=== PATIENT | male | born 1995 | race Caucasian/White ===

== ENCOUNTER 2023-03-19 10:57 | Outpatient (REF) | payer OTHER, SELFPAY ==
--- NOTE | ~2023-03-19 | US_ITS ---
EXAMINATION: US ABDOMEN COMPLETE CLINICAL INFORMATION: Elevated LFTs. COMPARISON: None available. TECHNIQUE: Real-time imaging of the abdominal viscera. FINDINGS: PANCREAS: Obscured by bowel gas. ABDOMINAL AORTA: Visualized aorta is normal in caliber however portions are obscured by bowel gas. INFERIOR VENA CAVA: Visualized portions are normal. LIVER: Liver is borderline enlarged measuring 17 cm in span. The liver contour is normal. Increased hepatic echogenicity which can be seen in the setting of hepatic steatosis or underlying liver disease. No definite focal lesion is seen, but evaluation is limited due to poor sound beam penetration through the coarse echogenic liver parenchyma. There is no intrahepatic biliary duct dilatation seen. GALLBLADDER: The gallbladder is physiologically distended without evidence of stones, sludge, polyps, wall thickening or pericholecystic fluid. COMMON BILE DUCT: Obscured by bowel gas. RIGHT KIDNEY: Normal. No hydronephrosis. No renal calculi or focal parenchymal lesions. The kidney measures 11.1 cm in maximum dimension. LEFT KIDNEY: Normal. No hydronephrosis. No renal calculi or focal parenchymal lesions. The kidney measures 10.6 cm in maximum dimension. SPLEEN: Normal. The spleen measures 12.7 cm in maximum dimension. FREE FLUID: None. US/US abdomen complete IMPRESSION: 1. Liver is borderline enlarged measuring 17 cm in span. 2. Increased hepatic echogenicity which can be seen in the setting of hepatic steatosis or underlying liver disease. No definite focal lesion is seen, but evaluation is limited due to poor sound beam penetration through the coarse echogenic liver parenchyma.
== END 2023-03-19 10:58 | disposition home or self-care (01) ==
LOC: HO.US 10:57
PROVIDERS: PCP Nurse Practitioner Family; Visit Provider Nurse Practitioner Family
DX: R79.89 Other specified abnormal findings of blood chemistry (principal)
CPT/HCPCS: 76700

== ENCOUNTER 2023-03-21 08:03 | Outpatient (REF) | payer OTHER, SELFPAY ==
[2023-03-21 08:26] LABS: MANUAL DIFF FLAG NO
[2023-03-21 08:57] LABS: Basophils Percent Auto 0.6 % (0-2); Eosinophils Absolute Auto 0.3 X10*3/uL (0.0-0.4); Eosinophils Percent Auto 3.8 % (0-4); Hematocrit 43.2 % (42.0-52.0); Hemoglobin 14.9 g/dl (14.0-18.0); Imm Gran Abs Auto 0.06 X10*3/uL (0.00-0.03); Imm Gran Pct Auto 0.9 % (0.0-0.4); Lymphocytes Absolute Auto 1.9 X10*3/uL (1.2-4.9); Lymphocytes Percent Auto 26.2 % (20-40); Mean Corpuscular HGB Conc 34.5 g/dl (31.0-36.0); Mean Corpuscular Hemoglobin 30.9 pg (27.0-33.0); Mean Corpuscular Volume 89.6 fL (80.0-98.0); Mean Platelet Volume 8.7 fL (9.4-12.4); Monocytes Absolute Auto 0.8 X10*3/uL (0.1-1.2); Monocytes Percent Auto 11.1 % (2-11); Neutrophils Absolute Auto 4.1 x10*3/uL (2.0-8.3); Neutrophils Percent Auto 57.4 % (45-73); Platelet Count 259 X10*3/uL (160-400); Red Blood Count 4.82 X10*6/uL (4.60-5.80); Red Cell Distribution Width 12.3 % (11.0-16.0); White Blood Count 7.1 X10*3/uL (4.8-10.8)
[2023-03-21 09:38] LABS: Alanine Aminotransferase 219 U/L (0-40); Albumin Level 4.4 g/dL (3.5-5.0); Alkaline Phosphatase 120 U/L (39-117); Anion Gap 16 (12-20); Aspartate Amino Transferase 95 U/L (5-37); Bilirubin Total 0.3 mg/dL (0.0-1.0); Blood Urea Nitrogen 10 mg/dL (9-16); Calcium 9.8 mg/dL (8.4-10.2); Carbon Dioxide 19 mmol/L (22-29); Chloride 106 mmol/L (96-108); Cholesterol 186 mg/dL; Estimated Glomerular Filt Rate > 60; Glucose Fasting 119 mg/dL (60-99); HDL Cholesterol 54 mg/dL; LDL Cholesterol Calculated 88 mg/dl; Potassium 4.1 mmol/L (3.3-5.1); Sodium 137 mmol/L (135-145); Total Protein 8.1 g/dL (6.5-8.0); Triglycerides 224 mg/dL
[2023-03-21 09:49] LABS: HBsAGNum1 0.28 S/CO (0.00-0.99); Hepatitis B Surface Antigen Negative (Negative)
[2023-03-21 10:02] LABS: TSH reflex Free T4 0.94 uIU/mL (0.32-4.0); Vitamin D 25-OH Total 24.3 ng/mL (>30)
[2023-03-21 10:16] LABS: Folate 11.8 ng/mL (> or = 4.0); Vitamin B12 633 pg/mL (200-900)
[2023-03-21 10:17] LABS: HBS Num1 0.47 mIU/mL (0-7.99); HBc Num1 0.04 S/CO (0.00-0.79); Hepatitis A Antibody IgM 0.23 Index (0-0.79); Hepatitis B Core Antibody Nonreactive (Nonreactive); ~Hepatitis A Antibody IgM Nonreactive (Nonreactive); ~Hepatitis B Surface Antibody NONREACTIVE (Nonreactive); ~Hepatitis C Antibody Reactive (Nonreactive)
== END 2023-03-21 08:04 | disposition home or self-care (01) ==
LOC: HO.LAB 08:03
PROVIDERS: PCP Nurse Practitioner Family; Visit Provider Nurse Practitioner Family
DX: F31.9 Bipolar disorder, unspecified (principal); R79.89 Other specified abnormal findings of blood chemistry
CPT/HCPCS: 36415; 80053; 80061; 82306; 82607; 82746; 84443; 85025; 86704; 86706; 86709; 86803; 87340

== ENCOUNTER 2023-12-11 11:37 | Emergency (ER) | payer OTHER, SELFPAY ==
--- NOTE | 2023-12-11 11:50 | ED.SKABFB ---
HPI - Skin/Abscess/Foreign Bdy General Stated complaint: scabies Time Seen by Provider: 12/11/23 11:40 Source: patient Mode of arrival: ambulatory Limitations: no limitations History of Present Illness HPI narrative: 28 yo patient at [facility] exposure to scabies no complaint here for treatment MD complaint: other Onset (ago): day(s) (1) Severity: mild Relieving factors: none Exacerbating factors: none Context: other (exposure) Associated symptoms: denies other symptoms Treatments prior to arrival: none Related Data Home Medications ?Medication ?Instructions ?Recorded ?Confirmed aripiprazole 20 mg tablet (Abilify) 20 mg PO DAILY 02/20/23 02/20/23 benzoyl peroxide 10 % topical 1 appl topical QID 02/20/23 02/20/23 cleanser benztropine 0.5 mg tablet 0.5 mg PO DAILY 02/20/23 02/20/23 buprenorphine 8 mg-naloxone 2 mg 1 film sublingual TID 02/20/23 02/20/23 sublingual film (Suboxone) calcium carbonate 600 mg lozenges mg PO 02/20/23 02/20/23 dextromethorphan-guaifenesin 20 5 ml PO Q4H PRN 02/20/23 02/20/23 mg-400 mg/5 mL oral liquid diphenhydramine HCl 25 mg capsule 25 mg PO QID PRN 02/20/23 02/20/23 (Benadryl) docusate sodium 100 mg capsule 100 mg PO BID 02/20/23 02/20/23 (Colace) estradiol 2 mg tablet 2 mg PO DAILY 02/20/23 02/20/23 estradiol 2 mg tablet 4 mg PO .AM 02/20/23 02/20/23 ibuprofen 600 mg tablet 600 mg PO Q6H PRN 02/20/23 02/20/23 lidocaine-prilocaine 2.5 %-2.5 % 2.5 g topical TID PRN 02/20/23 02/20/23 topical cream loratadine 10 mg tablet 10 mg PO DAILY 02/20/23 02/20/23 magnesium hydroxide 800 mg/5 mL 2,400 mg PO DAILY PRN 02/20/23 02/20/23 oral suspension melatonin 3 mg capsule 3 mg PO BEDTIME PRN 02/20/23 02/20/23 multivitamin 1 tab PO DAILY 02/20/23 02/20/23 naloxone 4 mg/actuation nasal 4 mg intranasal Q2M PRN 02/20/23 02/20/23 spray (Narcan) nicotine (polacrilex) 2 mg gum 2 mg buccal Q2H 02/20/23 02/20/23 nicotine 21 mg/24 hr daily 1 patch transdermal DAILY 02/20/23 02/20/23 transdermal patch olanzapine 20 mg tablet (Zyprexa) 20 mg PO BEDTIME 02/20/23 02/20/23 sennosides 17.2 mg tablet 17.2 mg PO BID 02/20/23 02/20/23 spironolactone 100 mg tablet 100 mg PO DAILY 02/20/23 02/20/23 trazodone 50 mg tablet 50 mg PO BEDTIME PRN 02/20/23 02/20/23 Previous Rx's ?Medication ?Instructions ?Recorded cyclobenzaprine 5 mg tablet 5 mg PO BEDTIME PRN muscle spasm 08/07/23 #14 tabs cholecalciferol (vitamin D3) 25 25 mcg PO DAILY #90 tabs 11/08/23 mcg (1,000 unit) tablet permethrin 5 % topical cream 1 appl topical Q14D 2 doses #60 12/11/23 grams Allergies Allergy/AdvReac Type Severity Reaction Status Date / Time Penicillins Allergy Mild Unknown Verified 02/20/23 08:46 Review of Systems Review of Systems: Constitutional : No Fever, No Chills, Cardiovascular : No Chest Pain, No SOB Respiratory : No Dyspnea Gastrointestinal : No abdominal pain Musculoskeletal : No Joint Swelling Skin : No rash, no skin laceration Neuro : No Weakness, No Numbness Psych : No SI/HI PMFSH Past Medical History Attestation statement: The following information was validated with the patient. Source: old records reviewed Medical History History of heroin use Bipolar 1 disorder Surgical History No pertinent past surgical history Family History Family History Mother No problems noted. Father No problems noted. Social History Social History Housing: Assisted Living Facility Patient Tobacco Use Status: Never used Tobacco e-Cigarette/Vaping Use: Currently Using service: No Current occupational status: unemployed Cognitive needs: No Hearing needs: No Vision needs: No Physical Exam Vital Signs: Appearance: Alert. Oriented X3. No acute distress. Eyes: Pupils equal, round and reactive to light. ENT: Pharynx normal. Neck: Normal inspection. Neck supple. CVS: Pulses normal. Respiratory: No respiratory distress. Abdomen: atraumatic Skin: Skin warm and dry. Normal skin color. Extremities: No lower extremity edema. Neuro: Oriented X 3. No motor deficit. No sensory deficit. Medical Decision Making Medical Decision Making MDM Narrative: 28 yo patient exposure to scabies at custodial will apply permethrin has no lesions not toxic Differential Diagnosis Differential Diagnoses: The differential diagnosis associated with the presentation includes scabies exposure Independent Historian Clinical information obtained from an independent historian. History obtained from or confirmed by: Other Prescription Management I considered prescription management with: Other Discharge Plan Discharge Clinical Impression: Exposure to scabies Patient Disposition: Home, Self-Care Instructions: Scabies (ED) Additional Instructions: return for worsening symptoms or concerns. apply permethrin Prescriptions: New permethrin 5 % cream 1 appl topical Q14D Qty: 60 0RF Rx Instructions: apply second treatment 14 days after first treatment if live lice remain No Action cyclobenzaprine 5 mg tablet 5 mg PO BEDTIME PRN (Reason: muscle spasm) Qty: 14 0RF cholecalciferol (vitamin D3) 25 mcg (1,000 unit) tablet 25 mcg PO DAILY Qty: 90 0RF aripiprazole [Abilify] 20 mg tablet 20 mg PO DAILY diphenhydramine HCl [Benadryl] 25 mg capsule 25 mg PO QID PRN benzoyl peroxide 10 % cleanser 1 appl topical QID benztropine 0.5 mg tablet 0.5 mg PO DAILY dextromethorphan-guaifenesin 20-400 mg/5 mL liquid 5 ml PO Q4H PRN docusate sodium [Colace] 100 mg capsule 100 mg PO BID ibuprofen 600 mg tablet 600 mg PO Q6H PRN loratadine 10 mg tablet 10 mg PO DAILY melatonin 3 mg capsule 3 mg PO BEDTIME PRN magnesium hydroxide 800 mg/5 mL suspension 2,400 mg PO DAILY PRN multivitamin Tablet 1 tab PO DAILY calcium carbonate 600 mg lozenge PO naloxone [Narcan] 4 mg/actuation spray,non-aerosol 4 mg intranasal Q2M PRN Rx Instructions: spray 1 dose into ONE nostril; alternate nostrils w each dose until help arrives nicotine (polacrilex) 2 mg gum 2 mg buccal Q2H nicotine 21 mg/24 hr patch 24 hour 1 patch transdermal DAILY sennosides 17.2 mg tablet 17.2 mg PO BID buprenorphine-naloxone [Suboxone] 8-2 mg film 1 film sublingual TID Rx Instructions: place 1 film on inside of (each) cheek trazodone 50 mg tablet 50 mg PO BEDTIME PRN olanzapine [Zyprexa] 20 mg tablet 20 mg PO BEDTIME estradiol 2 mg tablet 2 mg PO DAILY estradiol 2 mg tablet 4 mg PO .AM lidocaine-prilocaine 2.5-2.5 % cream 2.5 g topical TID PRN spironolactone 100 mg tablet 100 mg PO DAILY Print Language: Japanese
[2023-12-11 12:14] VITALS: BP 150/83; PULSE 100; RESP 18; TEMP 36.6; O2SAT 95; BMI 41.5
[2023-12-11 12:50] VITALS: BP 150/83; PULSE 100; RESP 18; TEMP 36.6; O2SAT 95
== END 2023-12-11 12:51 | disposition home or self-care (01) ==
PROVIDERS: Emergency Provider Emergency Medicine
DX: Z20.7 Contact with and (suspected) exposure to pediculosis, acariasis and other infestations (principal)
CPT/HCPCS: 99282; 99283

== ENCOUNTER 2024-07-21 21:49 | Inpatient (IN) | payer OTHER, SELFPAY ==
--- NOTE | ~2024-07-21 | XR_ITS ---
EXAMINATION: XR CHEST CLINICAL INFORMATION: Chest discomfort elevated heart rate COMPARISON: Cough. Chest pain. TECHNIQUE: Frontal view of the chest was obtained. FINDINGS: Lung volumes are low. The cardiomediastinal silhouette is within normal limits. There is no focal lung consolidation or pleural effusions. The bony structures and the soft tissues are unremarkable. XR/XR chest 1V IMPRESSION: Low lung volumes. No acute cardiopulmonary process. Electronically signed by: Abdirashid Fisher MD 07/21/2024 11:22 PM ANGELICA
[2024-07-21 21:54] VITALS: BP 160/93; BP 180/90; PULSE 140; PULSE 142; RESP 16; TEMP 36.7; O2SAT 94; O2SAT 98; BMI 37.4
[2024-07-21 22:03] VITALS: BP 160/93; PULSE 142; RESP 20; TEMP 36.7; O2SAT 92
--- NOTE | 2024-07-21 22:15 | ECG_ITS ---
Test Reason : TACHY Blood Pressure : / mmHG Vent. Rate : 131 BPM Atrial Rate : 131 BPM P-R Int : 152 ms QRS Dur : 080 ms QT Int : 292 ms P-R-T Axes : 042 030 033 degrees QTc Int : 431 ms Sinus tachycardia Otherwise normal ECG No previous ECGs available Referred By: Generic ED Physician Electronically Signed By:APRIL PIPER
--- NOTE | 2024-07-21 22:20 | ED_ITS ---
HPI - General Adult General Chief complaint: General Medical Stated complaint: from GH, fatigue, anxiety, headache, bgl 446 Time Seen by Provider: 07/21/24 22:18 Source: patient Mode of arrival: EMS Limitations: no limitations History of Present Illness ED Provider: madina ZAMUDIO narrative: Patient is 29 years old transitioning from male to female with history of bipolar disorder been having polyuria and polydipsia feeling last several weeks last been sleeping and very thirsty and increased frequency POC was 446 per EMS on arrival it was greater than 600 blood glucose was 1245. Patient's denied any use steroid use no history of pancreatitis no family history of diabetes no abdominal pain no nausea no vomiting Related Data Home Medications ?Medication ?Instructions ?Recorded ?Confirmed benzoyl peroxide 10 % topical 1 appl topical BEDTIME ACNE 02/20/23 07/22/24 cleanser benztropine 0.5 mg tablet 0.5 mg PO DAILY PRN EPS 02/20/23 07/22/24 buprenorphine 8 mg-naloxone 2 mg 1 film sublingual TID 02/20/23 07/22/24 sublingual film (Suboxone) diphenhydramine HCl 25 mg capsule 25 mg PO Q4H PRN Allergy Symptoms 02/20/23 07/22/24 (Benadryl) docusate sodium 100 mg capsule 100 mg PO BID 02/20/23 07/22/24 (Colace) ibuprofen 600 mg tablet 600 mg PO Q6H PRN PAIN/FEVER 02/20/23 07/22/24 lidocaine-prilocaine 2.5 %-2.5 % 1 appl topical TID PRN PRIOR TO 02/20/23 07/22/24 topical cream ELECTOLYSIS loratadine 10 mg tablet 10 mg PO DAILY PRN Allergy Symptoms 02/20/23 07/22/24 melatonin 3 mg capsule 3 mg PO BEDTIME PRN Sleep 02/20/23 07/22/24 multivitamin 1 tab PO DAILY 02/20/23 07/22/24 naloxone 4 mg/actuation nasal 4 mg intranasal Q2M PRN OUD 02/20/23 07/22/24 spray (Narcan) nicotine (polacrilex) 2 mg gum 2 mg buccal Q2H PRN Nicotine 02/20/23 07/22/24 Cravings nicotine 21 mg/24 hr daily 1 patch transdermal DAILY 02/20/23 07/22/24 transdermal patch olanzapine 20 mg tablet (Zyprexa) 20 mg PO BEDTIME 02/20/23 07/22/24 sennosides 17.2 mg tablet 17.2 mg PO BID PRN Constipation 02/20/23 07/22/24 trazodone 50 mg tablet 50 mg PO BEDTIME PRN Sleep 02/20/23 07/22/24 aluminum-mag hydroxide-simethicone 10 ml PO Q4-6H PRN Stomach Upset 07/22/24 07/22/24 400 mg-400 mg-40 mg/5 mL oral susp aripiprazole 30 mg tablet 30 mg PO DAILY 07/22/24 07/22/24 buspirone 10 mg tablet 20 mg PO TID 07/22/24 07/22/24 guaifenesin 200 mg/5 mL oral liquid 200 - 400 mg PO Q4H PRN 07/22/24 07/22/24 COUGH/CONGESTION magnesium hydroxide 400 mg/5 mL 30 ml PO DAILY PRN Constipation 07/22/24 07/22/24 oral suspension (Milk of Magnesia) polyethylene glycol 3350 17 gram 17 g PO DAILY PRN Constipation 07/22/24 07/22/24 oral powder packet topiramate 50 mg tablet 50 mg PO BEDTIME 07/22/24 07/22/24 Previous Rx's ?Medication ?Instructions ?Recorded cyclobenzaprine 5 mg tablet 5 mg PO BEDTIME PRN muscle spasm 08/07/23 #14 tabs cholecalciferol (vitamin D3) 25 25 mcg PO DAILY #90 tabs 11/08/23 mcg (1,000 unit) tablet Allergies Allergy/AdvReac Type Severity Reaction Status Date / Time Penicillins Allergy Mild Unknown Verified 07/21/24 21:59 Review of Systems 2 Review of Systems: Yes all other systems are reviewed and are negative PMFSH Past Medical History Medical History History of heroin use Bipolar 1 disorder Surgical History No pertinent past surgical history Family History Family History Mother No problems noted. Father No problems noted. Social History Social History Household Members: Caregiver Housing: Assisted Living Facility Patient Tobacco Use Status: Never used Tobacco Tobacco use type: Cigarette Cigarettes Per Day: 10 Smoked in Last 30 Days: Yes e-Cigarette/Vaping Use: Currently Using Patient Interested in Nicotine Replacement: No Use of substances other than those prescribed or required for medical reasons: No Currently Displaying Signs/Symptoms of Drug Intoxication Withdrawal: No Have you been hit, kicked, punched, or otherwise hurt by someone within the past year? If so, by whom?: No Do you feel safe in your current relationship?: No Current Relationship Is there a partner from a previous relationship who is making you feel unsafe now?: No Are you made to feel afraid or neglected: No Advance Directives: No Advance Directives Information Provided: Yes Do you have a plan to hurt others: No Plan Recently lost weight without trying: No Poor oral hygiene: No service: No Current occupational status: unemployed Cognitive needs: No Hearing needs: No Vision needs: No Physical Exam ED Vital Signs: Vital Signs - 24 hr 07/21/24 21:54 07/21/24 22:03 Temperature 98.0 F 98.0 F Pulse Rate 142 H 142 H Respiratory Rate 16 20 Blood Pressure 160/93 H 160/93 H Pulse Oximetry 94 92 Oxygen Delivery Method Room Air Room Air BMI result Body Mass Index 37.4 Appearance: Alert. Oriented X3. No acute distress. Obese Eyes: PERRLA, No Nystagmus ENT: Pharynx normal. Oral Mucosa Dry Neck: Normal inspection. Neck supple. CVS: Normal heart rate and rhythm. Pulses normal. Respiratory: No respiratory distress. Equal air entry bilateral, no wheezing/rales/rhonchi Abdomen: Soft and nontender. Bowel sounds are present, no mass palpable, no CVA tenderness Skin: Skin warm and dry. Normal skin color. Normal skin turgor. Extremities: No lower extremity edema. No calf tenderness Neuro: Oriented X 3. No motor deficit. No sensory deficit.No cerebellar signs , cranial nerves II-XII intact Medications Administered Generic Name Dose Route Start Last Admin Trade Name Freq PRN Reason Stop Dose Admin Buprenorphine/Naloxone 1 film 07/22/24 09:15 07/22/24 20:46 Buprenorphine/Naloxone 8/2 Mg Film SUBLINGUAL 1 film TID TYRONE Administration Heparin Sodium (Porcine) 5,000 unit 07/22/24 08:00 07/22/24 23:49 Heparin Sodium,Porcine 5,000 Unit/Ml Vial SUBCUT 5,000 unit Q8H TYRONE Administration Insulin Human Regular 100 unit in 100 mls @ 6 mls/hr 07/21/24 23:15 07/23/24 03:57 Myxredlin IVCONT 10 unit/hr .[id number] TYRONE 10 mls/hr Titration Protocol 6 UNIT/HR Dextrose/Lactated Ringer's 1,000 mls @ 100 mls/hr 07/22/24 13:00 07/23/24 06:11 D5lr IVCONT 100 mls/hr .Q10H TYRONE Administration Discontinued Medications Generic Name Dose Route Start Last Admin Trade Name Freq PRN Reason Stop Dose Admin Heparin Sodium (Porcine) 5,000 unit 07/22/24 00:30 07/22/24 00:19 Heparin Sodium,Porcine 5,000 Unit/Ml Vial SUBCUT 07/22/24 00:31 5,000 unit ONCE ONE Administration Sodium Chloride 1,000 mls @ 999 mls/hr 07/21/24 23:00 07/22/24 02:28 Ns IV 07/22/24 00:00 Infused .Q1H1M TYRONE Infusion Sodium Chloride 1,000 mls @ 999 mls/hr 07/21/24 23:00 07/22/24 02:29 Ns IV 07/22/24 00:00 Infused .Q1H1M TYRONE Infusion Sodium Chloride 1,000 mls @ 999 mls/hr 07/22/24 00:03 07/22/24 02:28 Ns IV 07/22/24 01:03 Infused .Q1H1M ONE Infusion Lactated Ringer's 1,000 mls @ 250 mls/hr 07/22/24 00:30 07/22/24 12:54 Lr IVCONT Infused .Q4H TYRONE Infusion Potassium Phosphate 15 mmol in 250 mls @ 62.5 mls/hr 07/22/24 08:51 07/22/24 14:26 Kphos IV 07/22/24 12:50 Infused ONCE ONE Infusion Potassium Phosphate 15 mmol in 250 mls @ 62.5 mls/hr 07/22/24 14:00 07/22/24 23:47 Kphos IV 07/22/24 21:59 Infused Q4H TYRONE Infusion Potassium Phosphate 15 mmol in 250 mls @ 62.5 mls/hr 07/22/24 18:42 07/23/24 03:52 Kphos IV 07/22/24 22:41 Infused ONCE ONE Infusion Influenza Virus Vaccine 0.5 ml 07/22/24 02:40 07/22/24 02:50 Flu Vacc [id number](6mos Up)/Pf 0.5 Ml Syringe IM 07/22/24 02:41 0.5 ml .ONCE ONE Administration Insulin Human Regular 10 unit 07/21/24 23:12 07/21/24 23:18 Insulin Regular, Human 100 Unit/Ml 10 Ml Vial IVPUSH 07/21/24 23:13 10 unit ONCE ONE Administration Potassium Chloride 40 meq 07/22/24 21:44 07/22/24 22:01 Potassium Chloride Packet 20 Meq Packet PO 07/22/24 21:45 40 meq ONCE ONE Administration Medical Decision Making Medical Decision Making MDM Narrative: Patient with diabetic ketoacidosis onset with blood sugar of 1245 anion gap of 29 creatinine of 2.47 pH of 7.32 bicarb 7 beta hydroxybutyrate 5.08 started on IV fluids 2 L bolus will give him two IV peripheral lines placed insulin drip started after IV insulin bolus case discussed specialty development consultant , will admit the patient to ICU Differential Diagnosis Differential Diagnoses: The differential diagnosis associated with the presentation includes Admission/Observation Consideration of admission/observation: Escalation of care including admission/observation considered Consult Healthcare Provider Management of the patient was discussed with: Industrial Technician 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 07/22/24 05:07 07/23/24 05:19 Labs: Lab Results 07/21/24 07/21/24 07/21/24 Range/Units 22:38 22:45 22:53 WBC 11.8 H (4.8-10.8) X10*3/uL RBC 5.04 (4.60-5.80) X10*6/uL Hgb 15.2 (14.0-18.0) g/dl Hct 46.3 (42.0-52.0) % MCV 91.9 (80.0-98.0) fL MCH 30.2 (27.0-33.0) pg MCHC 32.8 (31.0-36.0) g/dl RDW 13.2 (11.0-16.0) % Plt Count 264 (160-400) X10*3/uL MPV 10.9 (9.4-12.4) fL Immature Gran % (Auto) 0.6 H (0.0-0.4) % Neut % (Auto) 83.7 H (45-73) % Lymph % (Auto) 8.4 L (20-40) % [place] % (Auto) 7.2 (2-11) % Eos % (Auto) 0.0 (0-4) % Baso % (Auto) 0.1 (0-2) % Lymph # (Auto) 1.0 L (1.2-4.9) X10*3/uL [place] # (Auto) 0.9 (0.1-1.2) X10*3/uL Eos # (Auto) 0.0 (0.0-0.4) X10*3/uL Baso # (Auto) 0.0 (0.0-0.2) X10*3/uL Abs Immat Gran (auto) 0.07 H (0.00-0.03) X10*3/uL Absolute Neuts (auto) 9.9 H (2.0-8.3) x10*3/uL Absolute Nucleated RBC 0.000 (0.0-0.012) X10*3/uL Nucleated RBC % (auto) 0.0 (0.0-0.2) /100WBC VBG pH 7.32 (7.32-7.43) VBG pCO2 33 mmHg VBG pO2 82 mmHg VBG HCO3 17 L (22-26) mmol/L VBG O2 Saturation 97.0 % VBG Base Excess -7.1 mmol/L Sodium 130 L (135-145) mmol/L Potassium 5.0 (3.3-5.1) mmol/L Chloride 88 L (96-108) mmol/L Carbon Dioxide 17 L (22-29) mmol/L Anion Gap 29 H (12-20) BUN 28 H (9-16) mg/dL Creatinine 2.47 H (0.5-1.4) mg/dL Estim Creat Clear Calc 58.0 Estimated GFR 31 POC Glucose (60-115) mg/dL Random Glucose 1245 H* (60-115) mg/dL Osmolality 355 H (281-305) mosm/kg Calcium 10.0 (8.4-10.2) mg/dL Phosphorus 4.7 H (2.7-4.5) mg/dL Magnesium 2.8 H (1.6-2.6) mg/dL Total Bilirubin 1.3 H (0.0-1.0) mg/dL AST 92 H (5-37) U/L ALT 167 H (0-40) U/L Alkaline Phosphatase 208 H (39-117) U/L Total Protein 8.5 H (6.5-8.0) g/dL Albumin 4.6 (3.5-5.0) g/dL Beta-Hydroxybutyrate 5.08 H (0.02-0.27) mmol/L Urine Color Yellow Urine Appearance Clear Urine pH 5.5 (5.0-9.0) Ur Specific [place] >= 1.030 H (1.005-1.025) Urine Protein Negative (Neg-Trace) mg/dL Urine Glucose (UA) >=1000 H (Negative) mg/dL Urine Ketones 15 (Negative) mg/dL Urine Blood Moderate (2+) H (Negative) Urine Nitrite Negative (Negative) Ur Leukocyte Esterase Negative (Negative) Urine RBC 0-2 (0-2) /HPF Urine WBC 0-5 (0-5) /HPF Ur Squamous Epith Cells 0-2 (0-2) /HPF Urine Bacteria None Seen (None Seen) Hyaline Casts 0-2 (0-2) /LPF Influenza Type A (PCR) NEGATIVE (Negative) Influenza Type B (PCR) NEGATIVE (Negative) RSV RNA Qual (PCR) NEGATIVE (Negative) SARS-CoV-2 RNA (RT-PCR) NEGATIVE (Negative) 07/21/24 Range/Units 23:01 WBC (4.8-10.8) X10*3/uL RBC (4.60-5.80) X10*6/uL Hgb (14.0-18.0) g/dl Hct (42.0-52.0) % MCV (80.0-98.0) fL MCH (27.0-33.0) pg MCHC (31.0-36.0) g/dl RDW (11.0-16.0) % Plt Count (160-400) X10*3/uL MPV (9.4-12.4) fL Immature Gran % (Auto) (0.0-0.4) % Neut % (Auto) (45-73) % Lymph % (Auto) (20-40) % [place] % (Auto) (2-11) % Eos % (Auto) (0-4) % Baso % (Auto) (0-2) % Lymph # (Auto) (1.2-4.9) X10*3/uL [place] # (Auto) (0.1-1.2) X10*3/uL Eos # (Auto) (0.0-0.4) X10*3/uL Baso # (Auto) (0.0-0.2) X10*3/uL Abs Immat Gran (auto) (0.00-0.03) X10*3/uL Absolute Neuts (auto) (2.0-8.3) x10*3/uL Absolute Nucleated RBC (0.0-0.012) X10*3/uL Nucleated RBC % (auto) (0.0-0.2) /100WBC VBG pH (7.32-7.43) VBG pCO2 mmHg VBG pO2 mmHg VBG HCO3 (22-26) mmol/L VBG O2 Saturation % VBG Base Excess mmol/L Sodium (135-145) mmol/L Potassium (3.3-5.1) mmol/L Chloride (96-108) mmol/L Carbon Dioxide (22-29) mmol/L Anion Gap (12-20) BUN (9-16) mg/dL Creatinine (0.5-1.4) mg/dL Estim Creat Clear Calc Estimated GFR POC Glucose > 600 H* (60-115) mg/dL Random Glucose (60-115) mg/dL Osmolality (281-305) mosm/kg Calcium (8.4-10.2) mg/dL Phosphorus (2.7-4.5) mg/dL Magnesium (1.6-2.6) mg/dL Total Bilirubin (0.0-1.0) mg/dL AST (5-37) U/L ALT (0-40) U/L Alkaline Phosphatase (39-117) U/L Total Protein (6.5-8.0) g/dL Albumin (3.5-5.0) g/dL Beta-Hydroxybutyrate (0.02-0.27) mmol/L Urine Color Urine Appearance Urine pH (5.0-9.0) Ur Specific [place] (1.005-1.025) Urine Protein (Neg-Trace) mg/dL Urine Glucose (UA) (Negative) mg/dL Urine Ketones (Negative) mg/dL Urine Blood (Negative) Urine Nitrite (Negative) Ur Leukocyte Esterase (Negative) Urine RBC (0-2) /HPF Urine WBC (0-5) /HPF Ur Squamous Epith Cells (0-2) /HPF Urine Bacteria (None Seen) Hyaline Casts (0-2) /LPF Influenza Type A (PCR) (Negative) Influenza Type B (PCR) (Negative) RSV RNA Qual (PCR) (Negative) SARS-CoV-2 RNA (RT-PCR) (Negative) Discharge Plan Discharge Clinical Impression: Diabetic ketoacidosis Qualifiers: Diabetes mellitus type: other specified (including ANDRÉS) Diabetes mellitus complication detail: without coma Qualified Code(s): E13.10 - Other specified diabetes mellitus with ketoacidosis without coma Patient Disposition: Admitted As Inpatient Interventions: Admission Worksheet (ED) Last Done: 07/22/24 01:06 Discharge Date/Time: 07/22/24 02:08
[2024-07-21 22:49] LABS: Basophils Percent Auto 0.1 % (0-2); Hematocrit 46.3 % (42.0-52.0); Hemoglobin 15.2 g/dl (14.0-18.0); Imm Gran Abs Auto 0.07 X10*3/uL (0.00-0.03); Imm Gran Pct Auto 0.6 % (0.0-0.4); Lymphocytes Percent Auto 8.4 % (20-40); MANUAL DIFF FLAG NO; Mean Corpuscular HGB Conc 32.8 g/dl (31.0-36.0); Mean Corpuscular Hemoglobin 30.2 pg (27.0-33.0); Mean Corpuscular Volume 91.9 fL (80.0-98.0); Mean Platelet Volume 10.9 fL (9.4-12.4); Monocytes Absolute Auto 0.9 X10*3/uL (0.1-1.2); Monocytes Percent Auto 7.2 % (2-11); Neutrophils Absolute Auto 9.9 x10*3/uL (2.0-8.3); Neutrophils Percent Auto 83.7 % (45-73); Platelet Count 264 X10*3/uL (160-400); Red Blood Count 5.04 X10*6/uL (4.60-5.80); Red Cell Distribution Width 13.2 % (11.0-16.0); White Blood Count 11.8 X10*3/uL (4.8-10.8)
[2024-07-21 22:53] LABS: VBG Base Excess -7.1 mmol/L; VBG HCO3 17 mmol/L (22-26); VBG pCO2 33 mmHg; VBG pH 7.32 (7.32-7.43); VBG pO2 82 mmHg
[2024-07-21 22:54] LABS: Venous Blood Gas Refer to POC result
[2024-07-21 23:00] LABS: Appearance Urine Clear; Color Urine Yellow; Glucose Urine UA >=1000 mg/dL (Negative); Leukocyte Esterase Urine Negative (Negative); Nitrite Urine Negative (Negative); PH 5.5 (5.0-9.0); Specific Gravity - Urine >= 1.030 (1.005-1.025); UMIC TRIGGER UACC YES; Urine Blood Moderate (2+) (Negative); Urine Ketones 15 mg/dL (Negative); Urine Protein Negative (Neg-Trace)
[2024-07-21 23:06] LABS: Glucose, Whole Blood > 600 mg/dL (60-115)
[2024-07-21 23:10] LABS: Alanine Aminotransferase 167 U/L (0-40); Albumin Level 4.6 g/dL (3.5-5.0); Alkaline Phosphatase 208 U/L (39-117); Anion Gap 29 (12-20); Aspartate Amino Transferase 92 U/L (5-37); Bilirubin Total 1.3 mg/dL (0.0-1.0); Blood Urea Nitrogen 28 mg/dL (9-16); Carbon Dioxide 17 mmol/L (22-29); Chloride 88 mmol/L (96-108); Estimated Glomerular Filt Rate 31; Sodium 130 mmol/L (135-145); Total Protein 8.5 g/dL (6.5-8.0)
[2024-07-21 23:12] LABS: Bacteria Urine None Seen (None Seen); Hyaline Casts Urine 0-2 /LPF (0-2); RBC Urine 0-2 /HPF (0-2); Squamous Epithelial Cell Urine 0-2 /HPF (0-2); WBC Urine 0-5 /HPF (0-5)
[2024-07-21] MEDS: 0.9 % Sodium Chloride 1,000 ML 999 ML IV ×2 (23:12)
[2024-07-21] MEDS: Insulin Regular, Human 100 UNIT/ML 10 ML VIAL 10 UNIT IVPUSH (23:18)
[2024-07-21 23:21] LABS: Glucose Random 1245 mg/dL (60-115)
[2024-07-21 23:25] LABS: Osmolality, Serum 355 mosm/kg (281-305)
[2024-07-21 23:37] LABS: Beta-Hydroxybutyrate 5.08 mmol/L (0.02-0.27)
[2024-07-21 23:38] LABS: Influenza A PCR NEGATIVE (Negative); Influenza B PCR NEGATIVE (Negative); Resp Syncy Virus RNA Qual PCR NEGATIVE (Negative); SARS COV2 PCR INHOUSE NEGATIVE (Negative)
[2024-07-22] VITALS (22 sets, daily range): BP systolic 122–156; BP diastolic 65–96; PULSE 108–124; RESP 12–17; TEMP 36.7–37.5; O2SAT 91–95; BMI 38.0; BMI 38.8
[2024-07-22] MEDS: Insulin Regular/NS 100 UNIT/100 ML PLAST..BAG 6 UNIT IVCONT ×2 (00:05→17:35)
[2024-07-22] MEDS: 0.9 % Sodium Chloride 1,000 ML 999 ML IV (00:16)
[2024-07-22] MEDS: Heparin Sodium,Porcine 5,000 UNIT/ML VIAL 5000 UNIT SUBCUT ×4 (00:19→23:49)
[2024-07-22] MEDS: Lactated Ringers 1,000 ML 250 ML IVCONT ×2 (00:38→04:40)
[2024-07-22 00:39] LABS: Magnesium 2.8 mg/dL (1.6-2.6); Phosphorus 4.7 mg/dL (2.7-4.5)
--- NOTE | 2024-07-22 01:06 | PC.NURSE ---
Report given to ZOO DIRECTORPEG Pérez RN
[2024-07-22 01:29] LABS: Glucose, Whole Blood > 600 mg/dL (60-115)
[2024-07-22 01:29] LABS: Glucose, Whole Blood > 600 mg/dL (60-115)
[2024-07-22 01:59] LABS: Alanine Aminotransferase 152 U/L (0-40); Albumin Level 4.2 g/dL (3.5-5.0); Anion Gap 24 (12-20); Aspartate Amino Transferase 89 U/L (5-37); Bilirubin Total 1.1 mg/dL (0.0-1.0); Blood Urea Nitrogen 23 mg/dL (9-16); Calcium 9.2 mg/dL (8.4-10.2); Carbon Dioxide 19 mmol/L (22-29); Chloride 102 mmol/L (96-108); Creatinine Clr Calc Pharmacy 75.4; Estimated Glomerular Filt Rate 42; Glucose Random 704 mg/dL (60-115); Sodium 141 mmol/L (135-145); Total Protein 7.8 g/dL (6.5-8.0)
[2024-07-22 02:07] LABS: Alkaline Phosphatase 190 U/L (39-117)
[2024-07-22 02:23] LABS: Glucose, Whole Blood 555 mg/dL (60-115)
--- NOTE | 2024-07-22 02:35 | P.HPCC_ITS ---
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 polydypsia and polyuria over the last several weeks. The pt has no family history of diabetes. No personal history of pancreatitis. Denies steroid use. No abdominal pain, nausea, vomiting or diarrhea. On arrival to the emergency room, the patient's blood pressure was 160/93, heart rate 142, temp 98.0,? O2 sat 94% on room air. Laboratory data was significant for WBC 11.8, Sodium 130, potassium 5.0, chloride 88, CO2 17, anion gap 29, BUN 28, creatinine 2.47, random glucose 1245, serum osmo 355, phos 4.7, magnesium 2.8, total bili 1.3, AST 92, ALT 167, alk- phos 208, total protein 8.5, beta hydroxybutyrate 5.08. UA negative for UTI.?VBG 7.32/33/82/17.? Chest x-ray unremarkable. ED course: ? The patient was given a total of 3 L normal saline and was started on an insulin drip. Review of Systems 2 Constitutional: Constitutional: Reports fatigue and Denies headache(s) Eyes: Eyes: Denies loss of vision ENT: Reports Normal hearing present and Denies headache(s) Cardiovascular: Cardiovascular: Denies Epigastric Pain and Denies dyspnea Respiratory: Respiratory: Denies dyspnea Gastrointestinal: Gastrointestinal: Denies abdominal pain, Reports nausea and Reports vomiting Genitourinary: Genitourinary: Reports urinary frequency Neurologic: Reports Normal hearing present, Denies confusion, Denies headache(s) and Denies loss of vision Psychiatric: Psychiatric: Denies confusion and Denies irritability Endocrine: Endocrine: Reports fatigue, Reports polydipsia and Reports polyuria PMFSH Past Medical History Medical History History of heroin use Bipolar 1 disorder Family History Family History Mother No problems noted. Father No problems noted. Surgical History Surgical History No pertinent past surgical history Social History Social History Household Members: Caregiver Housing: Assisted Living Facility Patient Tobacco Use Status: Never used Tobacco Tobacco use type: Cigarette Cigarettes Per Day: 10 Smoked in Last 30 Days: Yes e-Cigarette/Vaping Use: Currently Using Patient Interested in Nicotine Replacement: No Use of substances other than those prescribed or required for medical reasons: No Have you been hit, kicked, punched, or otherwise hurt by someone within the past year? If so, by whom?: No Do you feel safe in your current relationship?: No Current Relationship Is there a partner from a previous relationship who is making you feel unsafe now?: No Are you made to feel afraid or neglected: No Advance Directives: No Advance Directives Information Provided: Yes Do you have a plan to hurt others: No Plan Recently lost weight without trying: No Poor oral hygiene: No service: No Current occupational status: unemployed Cognitive needs: No Hearing needs: No Vision needs: No Meds Allergies Allergy/AdvReac Type Severity Reaction Status Date / Time Penicillins Allergy Mild Unknown Verified 07/21/24 21:59 Active Medications: Current Medications Heparin Sodium (Porcine) (Heparin Sodium,Porcine 5,000 Unit/Ml Vial) 5,000 unit SUBCUT Q8H [facility] Insulin Human Regular (Myxredlin) 100 unit in 100 mls @ 6 mls/hr IVCONT .[id number] [facility]; Protocol Last Titration: 07/22/24 02:27 Dose: 3 unit/hr, 3 mls/hr Dextrose (D10) 250 mls @ 750 mls/hr IV Q30M PRN PRN Reason: BG <70 Lactated Ringer's (Lr) 1,000 mls @ 250 mls/hr IVCONT .Q4H [facility] Last Admin: 07/22/24 00:38 Dose: 250 mls/hr Home Medications ?Medication ?Instructions ?Recorded ?Confirmed ?Last Taken ?Type aripiprazole 20 mg tablet (Abilify) 20 mg PO DAILY 02/20/23 02/20/23 Unknown History benzoyl peroxide 10 % topical 1 appl topical QID 02/20/23 02/20/23 Unknown History cleanser benztropine 0.5 mg tablet 0.5 mg PO DAILY 02/20/23 02/20/23 Unknown History buprenorphine 8 mg-naloxone 2 mg 1 film sublingual TID 02/20/23 02/20/23 Unknown History sublingual film (Suboxone) calcium carbonate 600 mg lozenges mg PO 02/20/23 02/20/23 Unknown History dextromethorphan-guaifenesin 20 5 ml PO Q4H PRN 02/20/23 02/20/23 Unknown History mg-400 mg/5 mL oral liquid diphenhydramine HCl 25 mg capsule 25 mg PO QID PRN 02/20/23 02/20/23 Unknown History (Benadryl) docusate sodium 100 mg capsule 100 mg PO BID 02/20/23 02/20/23 Unknown History (Colace) estradiol 2 mg tablet 2 mg PO DAILY 02/20/23 02/20/23 Unknown History estradiol 2 mg tablet 4 mg PO .AM 02/20/23 02/20/23 Unknown History ibuprofen 600 mg tablet 600 mg PO Q6H PRN 02/20/23 02/20/23 Unknown History lidocaine-prilocaine 2.5 %-2.5 % 2.5 g topical TID PRN 02/20/23 02/20/23 Unknown History topical cream loratadine 10 mg tablet 10 mg PO DAILY 02/20/23 02/20/23 Unknown History magnesium hydroxide 800 mg/5 mL 2,400 mg PO DAILY PRN 02/20/23 02/20/23 Unknown History oral suspension melatonin 3 mg capsule 3 mg PO BEDTIME PRN 02/20/23 02/20/23 Unknown History multivitamin 1 tab PO DAILY 02/20/23 02/20/23 Unknown History naloxone 4 mg/actuation nasal 4 mg intranasal Q2M PRN 02/20/23 02/20/23 Unknown History spray (Narcan) nicotine (polacrilex) 2 mg gum 2 mg buccal Q2H 02/20/23 02/20/23 Unknown History nicotine 21 mg/24 hr daily 1 patch transdermal DAILY 02/20/23 02/20/23 Unknown History transdermal patch olanzapine 20 mg tablet (Zyprexa) 20 mg PO BEDTIME 02/20/23 02/20/23 Unknown History sennosides 17.2 mg tablet 17.2 mg PO BID 02/20/23 02/20/23 Unknown History spironolactone 100 mg tablet 100 mg PO DAILY 02/20/23 02/20/23 Unknown History trazodone 50 mg tablet 50 mg PO BEDTIME PRN 02/20/23 02/20/23 Unknown History Physical Exam 2 Vital Signs: Vital Signs: Last Vital Signs Temp 99.5 F 07/22/24 02:00 Pulse 124 H 07/22/24 02:00 Resp 16 07/22/24 02:00 BP 140/87 H 07/22/24 02:00 Pulse Ox 91 L 07/22/24 02:00 O2 Del Method Room Air 07/22/24 02:00 BMI result Body Mass Index 37.4 Const: General: No confusion Orientation/consciousness: No confusion HEENT: Head: Yes normocephalic and Yes atraumatic General nose exam: Normal external nose present (Nares patent, septum midline, sinuses nontender bilaterally.) Mouth: Normal oral and palatal mucosa present (No thrush, tongue in midline, mucosa moist.) Throat: Yes other (No erythema, no exudate.) Neck: Neck: Yes supple (no thyromegaly, trachea midline.) Carotids: normal carotid upstroke Resp: Auscultation: clear to auscultation bilaterally (normal work of breathing, no accessory muscle use) Cardio: Jugular venous distension: no JVD Rate: tachycardic Rhythm: r egular rhythm Heart sounds: no gallops, no murmurs and no rubs Peripheral pulses: Peripheral pulses 2+ throughout GI: Palpation (GI): Soft to palpation (nondistended.) and nontender Neuro: General: No confusion Cranial nerves: Yes Normal hearing present Extrem: General: Yes full ROM, Yes capillary refill normal and Yes no clubbing, cyanosis or edema Psych: Affect: normal affect Attitude: cooperative Results Labs 07/21/24 22:38 07/22/24 01:29 Labs: Laboratory Results - last 24 hr 07/21/24 07/21/24 07/21/24 22:38 22:45 22:53 MCV 91.9 MCH 30.2 MCHC 32.8 RDW 13.2 Plt Count 264 MPV 10.9 Immature Gran % (Auto) 0.6 H Neut % (Auto) 83.7 H Lymph % (Auto) 8.4 L [place] % (Auto) 7.2 Eos % (Auto) 0.0 Baso % (Auto) 0.1 Lymph # (Auto) 1.0 L [place] # (Auto) 0.9 Eos # (Auto) 0.0 Baso # (Auto) 0.0 Abs Immat Gran (auto) 0.07 H Absolute Neuts (auto) 9.9 H Absolute Nucleated RBC 0.000 Nucleated RBC % (auto) 0.0 VBG pH 7.32 VBG pCO2 33 VBG pO2 82 VBG HCO3 17 L VBG O2 Saturation 97.0 VBG Base Excess -7.1 Anion Gap 29 H Estim Creat Clear Calc 58.0 Estimated GFR 31 POC Glucose Random Glucose 1245 H* Osmolality 355 H Calcium 10.0 Phosphorus 4.7 H Magnesium 2.8 H Total Bilirubin 1.3 H AST 92 H ALT 167 H Alkaline Phosphatase 208 H Total Protein 8.5 H Albumin 4.6 Beta-Hydroxybutyrate 5.08 H Urine Color Yellow Urine Appearance Clear Urine pH 5.5 Ur Specific [place] >= 1.030 H Urine Protein Negative Urine Glucose (UA) >=1000 H Urine Ketones 15 Urine Blood Moderate (2+) H Urine Nitrite Negative Ur Leukocyte Esterase Negative Urine RBC 0-2 Urine WBC 0-5 Ur Squamous Epith Cells 0-2 Urine Bacteria None Seen Hyaline Casts 0-2 Influenza Type A (PCR) NEGATIVE Influenza Type B (PCR) NEGATIVE RSV RNA Qual (PCR) NEGATIVE SARS-CoV-2 RNA (RT-PCR) NEGATIVE 07/21/24 07/22/24 07/22/24 23:01 01:14 01:18 MCV MCH MCHC RDW Plt Count MPV Immature Gran % (Auto) Neut % (Auto) Lymph % (Auto) [place] % (Auto) Eos % (Auto) Baso % (Auto) Lymph # (Auto) [place] # (Auto) Eos # (Auto) Baso # (Auto) Abs Immat Gran (auto) Absolute Neuts (auto) Absolute Nucleated RBC Nucleated RBC % (auto) VBG pH VBG pCO2 VBG pO2 VBG HCO3 VBG O2 Saturation VBG Base Excess Anion Gap Estim Creat Clear Calc Estimated GFR POC Glucose > 600 H* > 600 H* > 600 H* Random Glucose Osmolality Calcium Phosphorus Magnesium Total Bilirubin AST ALT Alkaline Phosphatase Total Protein Albumin Beta-Hydroxybutyrate Urine Color Urine Appearance Urine pH Ur Specific [place] Urine Protein Urine Glucose (UA) Urine Ketones Urine Blood Urine Nitrite Ur Leukocyte Esterase Urine RBC Urine WBC Ur Squamous Epith Cells Urine Bacteria Hyaline Casts Influenza Type A (PCR) Influenza Type B (PCR) RSV RNA Qual (PCR) SARS-CoV-2 RNA (RT-PCR) 07/22/24 07/22/24 01:29 02:19 MCV MCH MCHC RDW Plt Count MPV Immature Gran % (Auto) Neut % (Auto) Lymph % (Auto) [place] % (Auto) Eos % (Auto) Baso % (Auto) Lymph # (Auto) [place] # (Auto) Eos # (Auto) Baso # (Auto) Abs Immat Gran (auto) Absolute Neuts (auto) Absolute Nucleated RBC Nucleated RBC % (auto) VBG pH VBG pCO2 VBG pO2 VBG HCO3 VBG O2 Saturation VBG Base Excess Anion Gap 24 H Estim Creat Clear Calc 75.4 Estimated GFR 42 POC Glucose 555 H* Random Glucose 704 H* Osmolality Calcium 9.2 D Phosphorus Magnesium Total Bilirubin 1.1 H AST 89 H ALT 152 H Alkaline Phosphatase 190 H Total Protein 7.8 Albumin 4.2 Beta-Hydroxybutyrate Urine Color Urine Appearance Urine pH Ur Specific [place] Urine Protein Urine Glucose (UA) Urine Ketones Urine Blood Urine Nitrite Ur Leukocyte Esterase Urine RBC Urine WBC Ur Squamous Epith Cells Urine Bacteria Hyaline Casts Influenza Type A (PCR) Influenza Type B (PCR) RSV RNA Qual (PCR) SARS-CoV-2 RNA (RT-PCR) Imaging Radiologist's Impressions: Impressions Chest X-Ray 07/21/24 22:15 IMPRESSION: Low lung volumes. No acute cardiopulmonary process. 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 Neuro:? No acute issues?? Cardiac:? No acute issues Pulmonary:? No acute issues?? Renal:? JERONIMO like due to? DKA. ?Continue IV fluid.? Continue to check renal induces and urine output.? Closely monitor electrolytes. GI:? History of transaminitis. Trend LFTs. Hepatitis panel, Lipid panel in AM.?? Endo:? New diagnosis of diabetes. Continue IVF. Follow DKA protocol? ID: ? No acute issues? Heme/Onc:? No acute issues. Psych: History substance abuse. Continue Suboxone once dose is verified.? Miscellaneous:? No acute issues. Prophylaxis:? ? Heparin / bilateral pneumatic pumps Diet: NPO with sips of water, ice chips Case discussed with Attending Dr. Brandt. Critical care time: does not qualify for critical care? Total time managing care of this patient today: 60 minutes.
[2024-07-22] MEDS: Flu Vacc TS2024-25(6mos up)/PF 0.5 ML SYRINGE IM (02:50)
[2024-07-22 03:06] LABS: Glucose, Whole Blood 565 mg/dL (60-115)
[2024-07-22 04:05] LABS: Glucose, Whole Blood 520 mg/dL (60-115)
[2024-07-22 05:04] LABS: Glucose, Whole Blood 510 mg/dL (60-115)
[2024-07-22 05:37] LABS: MANUAL DIFF FLAG NO
[2024-07-22 05:38] LABS: Basophils Percent Auto 0.3 % (0-2); Eosinophils Percent Auto 0.3 % (0-4); Hematocrit 44.2 % (42.0-52.0); Hemoglobin 15.1 g/dl (14.0-18.0); Imm Gran Abs Auto 0.06 X10*3/uL (0.00-0.03); Imm Gran Pct Auto 0.6 % (0.0-0.4); Lymphocytes Percent Auto 18.4 % (20-40); Mean Corpuscular HGB Conc 34.2 g/dl (31.0-36.0); Mean Corpuscular Hemoglobin 30.3 pg (27.0-33.0); Mean Corpuscular Volume 88.8 fL (80.0-98.0); Mean Platelet Volume 10.6 fL (9.4-12.4); Monocytes Percent Auto 9.1 % (2-11); Neutrophils Absolute Auto 7.7 x10*3/uL (2.0-8.3); Neutrophils Percent Auto 71.3 % (45-73); Platelet Count 226 X10*3/uL (160-400); Red Blood Count 4.98 X10*6/uL (4.60-5.80); White Blood Count 10.8 X10*3/uL (4.8-10.8)
[2024-07-22 05:54] LABS: Cholesterol 109 mg/dL (<200); HDL Cholesterol 14 mg/dL (>40); LDL Cholesterol Calculated 18 mg/dL (<100); Triglycerides 385 mg/dL (<150)
[2024-07-22 06:02] LABS: Alanine Aminotransferase 145 U/L (0-40); Alkaline Phosphatase 174 U/L (39-117); Anion Gap 23 (12-20); Aspartate Amino Transferase 85 U/L (5-37); Blood Urea Nitrogen 19 mg/dL (9-16); Calcium 9.2 mg/dL (8.4-10.2); Carbon Dioxide 20 mmol/L (22-29); Chloride 106 mmol/L (96-108); Creatinine Clr Calc Pharmacy 92.7; Estimated Glomerular Filt Rate 53; Glucose Random 502 mg/dL (60-115); Magnesium 2.7 mg/dL (1.6-2.6); Phosphorus 2.7 mg/dL (2.7-4.5); Potassium 4.1 mmol/L (3.3-5.1); Sodium 145 mmol/L (135-145); Total Protein 7.5 g/dL (6.5-8.0)
[2024-07-22 06:19] LABS: TSH reflex Free T4 0.47 uIU/mL (0.32-4.0)
[2024-07-22 06:40] LABS: Reflex LDLD? No
[2024-07-22 07:20] LABS: Glucose, Whole Blood 390 mg/dL (60-115)
--- NOTE | 2024-07-22 07:41 | PHA.MEDREC ---
Pharmacy Consult ? Medication Reconciliation Pharmacy has completed the medication reconciliation. list from yadi malik. Patient is no longer taking estradiol and spironlactone per list and also confirmed with patient.
[2024-07-22 08:17] LABS: Glucose, Whole Blood 358 mg/dL (60-115)
[2024-07-22 08:26] LABS: HBS Num1 0.08 mIU/mL (0-7.99); HBc Num1 0.08 S/CO (0.00-0.79); HBsAGNum1 0.44 S/CO (0.00-0.99); Hepatitis A Antibody IgM 0.15 Index (0-0.79); Hepatitis B Core Antibody Nonreactive (Nonreactive); Hepatitis B Surface Antigen Negative (Negative); ~HepC Num1 14.51 S/CO (0.00-0.79); ~Hepatitis A Antibody IgM Nonreactive (Nonreactive); ~Hepatitis B Surface Antibody NONREACTIVE (Nonreactive); ~Hepatitis C Antibody Reactive (Nonreactive)
[2024-07-22 08:41] LABS: Estimated Average Glucose 341 mg/dL; Hemoglobin A1C 450.0514 umol/L; Hemoglobin A1c % 13.5 % (<6.0); Total Hemoglobin (HGBA1C) 3614.6104 umol/L
[2024-07-22 08:48] LABS: Anion Gap 16 (12-20); Blood Urea Nitrogen 17 mg/dL (9-16); Calcium 9.1 mg/dL (8.4-10.2); Carbon Dioxide 25 mmol/L (22-29); Chloride 109 mmol/L (96-108); Creatinine Clr Calc Pharmacy 101.1; Estimated Glomerular Filt Rate 58; Glucose Random 371 mg/dL (60-115); Magnesium 2.6 mg/dL (1.6-2.6); Phosphorus 2.4 mg/dL (2.7-4.5); Potassium 3.6 mmol/L (3.3-5.1); Sodium 146 mmol/L (135-145)
[2024-07-22 09:46] LABS: Glucose, Whole Blood 329 mg/dL (60-115)
[2024-07-22] MEDS: Buprenorphine/Naloxone 8/2 mg FILM 1 FILM SUBLINGUAL ×3 (10:16→20:46)
[2024-07-22] MEDS: Potassium Phosphate/NS 15 MMOL/250 ML PLAST..BAG 62.5 MMOL IV ×4 (10:16→23:48)
[2024-07-22] MEDS: Insulin Regular/NS 100 UNIT/100 ML PLAST..BAG 15 UNIT IVCONT (10:19)
[2024-07-22 10:36] LABS: Glucose, Whole Blood 285 mg/dL (60-115)
[2024-07-22] MEDS: Lactated Ringers 1,000 ML 200 ML IVCONT (11:30)
[2024-07-22 11:32] LABS: Glucose, Whole Blood 254 mg/dL (60-115)
[2024-07-22 12:39] LABS: Glucose, Whole Blood 196 mg/dL (60-115)
[2024-07-22] MEDS: Dextrose 5 % and Lactated Ring 1,000 ML 125 ML IVCONT ×2 (12:54→20:46)
[2024-07-22 13:40] LABS: Anion Gap 14 (12-20); Blood Urea Nitrogen 14 mg/dL (9-16); Calcium 8.6 mg/dL (8.4-10.2); Carbon Dioxide 26 mmol/L (22-29); Chloride 109 mmol/L (96-108); Creatinine Clr Calc Pharmacy 125.9; Estimated Glomerular Filt Rate > 60; Glucose Random 185 mg/dL (60-115); Sodium 146 mmol/L (135-145)
--- NOTE | 2024-07-22 14:07 | MHC.CM.PN ---
Addendum entered by Rebeka Cedeno 07/24/24 10:18: PT WILL NEED VNA AT DC TASK SENT TO [facility] TO MAKE PT A POST DC PCP APPT [facility] FOLLOWING Original Note: Patient is a trans female, preferred name is Cynthia. Patient lives in recovery housing w/ [facility] x 2 years. Has a case assistant through this program. Functionally independent. Reports they are an active patient w/ [facility]. Previously seen by HANY Malik and recently assigned to Jimmy Heath MD, but has not seen him yet. No HCP. CM provided education and offered assistance. Patient declined. DP: Goal is return to program, may benefit from SN via [facility] for new dx DM. Program to transport. CM will continue to follow.
[2024-07-22 14:31] LABS: Glucose, Whole Blood 162 mg/dL (60-115)
[2024-07-22 15:20] LABS: Glucose, Whole Blood 148 mg/dL (60-115)
[2024-07-22 16:39] LABS: Glucose, Whole Blood 128 mg/dL (60-115)
[2024-07-22 17:16] LABS: Glucose, Whole Blood 156 mg/dL (60-115)
[2024-07-22 17:56] LABS: Anion Gap 15 (12-20); Blood Urea Nitrogen 12 mg/dL (9-16); Calcium 8.6 mg/dL (8.4-10.2); Carbon Dioxide 26 mmol/L (22-29); Chloride 105 mmol/L (96-108); Creatinine Clr Calc Pharmacy 136.5; Estimated Glomerular Filt Rate > 60; Glucose Random 141 mg/dL (60-115); Potassium 3.1 mmol/L (3.3-5.1); Sodium 143 mmol/L (135-145)
[2024-07-22 18:47] LABS: Glucose, Whole Blood 239 mg/dL (60-115)
[2024-07-22 19:42] LABS: Glucose, Whole Blood 229 mg/dL (60-115)
[2024-07-22 20:57] LABS: Glucose, Whole Blood 225 mg/dL (60-115)
[2024-07-22 21:43] LABS: Anion Gap 14 (12-20); Blood Urea Nitrogen 11 mg/dL (9-16); Calcium 8.1 mg/dL (8.4-10.2); Carbon Dioxide 26 mmol/L (22-29); Chloride 105 mmol/L (96-108); Creatinine Clr Calc Pharmacy 140.5; Estimated Glomerular Filt Rate > 60; Glucose Random 237 mg/dL (60-115); Phosphorus 2.9 mg/dL (2.7-4.5); Potassium 2.9 mmol/L (3.3-5.1); Sodium 142 mmol/L (135-145)
[2024-07-22] MEDS: Potassium Chloride Packet 20 MEQ PACKET 40 MEQ PO (22:01)
[2024-07-22 23:00] LABS: Glucose, Whole Blood 207 mg/dL (60-115)
[2024-07-23] VITALS (16 sets, daily range): BP systolic 99–160; BP diastolic 67–88; PULSE 92–117; RESP 14–20; TEMP 36.4–37.5; O2SAT 89–95; BMI 40.2; BMI 40.1
[2024-07-23 00:11] LABS: Glucose, Whole Blood 209 mg/dL (60-115)
[2024-07-23 01:26] LABS: Anion Gap 15 (12-20); Blood Urea Nitrogen 10 mg/dL (9-16); Calcium 8.3 mg/dL (8.4-10.2); Carbon Dioxide 24 mmol/L (22-29); Chloride 107 mmol/L (96-108); Creatinine Clr Calc Pharmacy 144.7; Estimated Glomerular Filt Rate > 60; Glucose Random 178 mg/dL (60-115); Potassium 3.3 mmol/L (3.3-5.1); Sodium 143 mmol/L (135-145)
[2024-07-23 01:56] LABS: Glucose, Whole Blood 143 mg/dL (60-115)
[2024-07-23] MEDS: Insulin Regular/NS 100 UNIT/100 ML PLAST..BAG 14 UNIT IVCONT (01:58)
[2024-07-23 03:09] LABS: Glucose, Whole Blood 121 mg/dL (60-115)
[2024-07-23 04:00] LABS: Glucose, Whole Blood 110 mg/dL (60-115)
[2024-07-23 05:05] LABS: Glucose, Whole Blood 106 mg/dL (60-115)
[2024-07-23 06:03] LABS: Anion Gap 15 (12-20); Blood Urea Nitrogen 8 mg/dL (9-16); Calcium 8.2 mg/dL (8.4-10.2); Carbon Dioxide 23 mmol/L (22-29); Chloride 108 mmol/L (96-108); Creatinine Clr Calc Pharmacy 167.9; Estimated Glomerular Filt Rate > 60; Glucose Random 98 mg/dL (60-115); Potassium 3.8 mmol/L (3.3-5.1); Sodium 142 mmol/L (135-145)
[2024-07-23 06:03] LABS: Glucose, Whole Blood 105 mg/dL (60-115)
[2024-07-23] MEDS: Dextrose 5 % and Lactated Ring 1,000 ML 100 ML IVCONT (06:11)
[2024-07-23 07:24] LABS: Glucose, Whole Blood 112 mg/dL (60-115)
[2024-07-23] MEDS: Heparin Sodium,Porcine 5,000 UNIT/ML VIAL 5000 UNIT SUBCUT ×2 (07:43→14:05)
--- NOTE | 2024-07-23 07:51 | P.PNCC_ITS ---
Subjective Subjective Date of Service: 07/23/24 Interval History: no significant overnight events; interval improvement anion-gap, to transition from insulin gtt to SQ Critical Care Time (minutes): 0 Physical Exam 2 Vital Signs: Vital Signs: Last Vital Signs Temp 99.5 F 07/23/24 04:00 Pulse 92 07/23/24 07:00 Resp 18 07/23/24 07:00 BP 122/70 07/23/24 07:00 Pulse Ox 91 L 07/23/24 07:00 O2 Del Method Room Air 07/23/24 07:00 BMI result Body Mass Index 40.2 Const: General: cooperative, healthy appearing, comfortable, no acute distress, well developed, alert, awake and Physically active O rientation/consciousness: patient oriented x3 HEENT: Head: Yes normal to inspection, Yes normocephalic and Yes atraumatic Eyes: General: appearance normal, both eyes and all related structures Neck: Neck: Yes normal visual inspection, Yes full ROM, Yes no meningeal signs, Yes trachea midline and Yes supple Chest: Chest palpation & inspection: normal inspection of the chest Resp: Other: no appreciable rales, rhonchi, wheezing Effort & Inspection: normal respiratory effort Cardio: Rate: regular rate Rhythm: regular rhythm GI: Inspection: Yes normal to inspection, No Abdominal wall edema and No distended Palpation (GI): Soft to palpation, not firm, nontender, no guarding and not rigid Skin: General skin exam: no rashes or lesions noted Neuro: General: patient oriented x3, moves all extremities, no meningeal signs and no focal motor deficits Extrem: General: Yes normal to inspection, Yes full ROM, Yes capillary refill normal and Yes no clubbing, cyanosis or edema Psych: Appearance: grossly normal Objective Data Labs 07/22/24 05:07 07/23/24 05:19 Labs: Laboratory Results - last 24 hr 07/22/24 07/22/24 07/22/24 05:07 08:12 08:26 Hold Purple Top Sodium 146 H Potassium 3.6 Chloride 109 H Carbon Dioxide 25 Anion Gap 16 BUN 17 H Creatinine 1.43 H Estim Creat Clear Calc 101.1 Estimated GFR 58 POC Glucose 358 H* Random Glucose 371 H* Estimat Average Glucose 341 Hemoglobin A1c % 13.5 H Calcium 9.1 Phosphorus 2.4 L Magnesium 2.6 Hepatitis A IgM Ab Nonreactive Hep Bs Antigen Negative Hep Bs Antibody NONREACTIVE Hep B Core Total Ab Nonreactive Hepatitis C Ab (EIA) Reactive H 07/22/24 07/22/24 07/22/24 09:28 10:32 11:28 Hold Purple Top Sodium Potassium Chloride Carbon Dioxide Anion Gap BUN Creatinine Estim Creat Clear Calc Estimated GFR POC Glucose 329 H 285 H 254 H Random Glucose Estimat Average Glucose Hemoglobin A1c % Calcium Phosphorus Magnesium Hepatitis A IgM Ab Hep Bs Antigen Hep Bs Antibody Hep B Core Total Ab Hepatitis C Ab (EIA) 07/22/24 07/22/24 07/22/24 12:34 13:17 14:25 Hold Purple Top Sodium 146 H Potassium 3.0 L Chloride 109 H Carbon Dioxide 26 Anion Gap 14 BUN 14 Creatinine 1.16 Estim Creat Clear Calc 125.9 Estimated GFR > 60 POC Glucose 196 H 162 H Random Glucose 185 H Estimat Average Glucose Hemoglobin A1c % Calcium 8.6 Phosphorus Magnesium Hepatitis A IgM Ab Hep Bs Antigen Hep Bs Antibody Hep B Core Total Ab Hepatitis C Ab (EIA) 07/22/24 07/22/24 07/22/24 15:16 16:32 17:07 Hold Purple Top Sodium 143 Potassium 3.1 L Chloride 105 Carbon Dioxide 26 Anion Gap 15 BUN 12 Creatinine 1.07 Estim Creat Clear Calc 136.5 Estimated GFR > 60 POC Glucose 148 H 128 H Random Glucose 141 H Estimat Average Glucose Hemoglobin A1c % Calcium 8.6 Phosphorus Magnesium Hepatitis A IgM Ab Hep Bs Antigen Hep Bs Antibody Hep B Core Total Ab Hepatitis C Ab (EIA) 07/22/24 07/22/24 07/22/24 17:12 18:42 19:26 Hold Purple Top Sodium Potassium Chloride Carbon Dioxide Anion Gap BUN Creatinine Estim Creat Clear Calc Estimated GFR POC Glucose 156 H 239 H 229 H Random Glucose Estimat Average Glucose Hemoglobin A1c % Calcium Phosphorus Magnesium Hepatitis A IgM Ab Hep Bs Antigen Hep Bs Antibody Hep B Core Total Ab Hepatitis C Ab (EIA) 07/22/24 07/22/24 07/22/24 20:17 21:12 21:15 Hold Purple Top SEE NOTE Sodium 142 Potassium 2.9 L* Chloride 105 Carbon Dioxide 26 Anion Gap 14 BUN 11 Creatinine 1.04 Estim Creat Clear Calc 140.5 Estimated GFR > 60 POC Glucose 225 H Random Glucose 237 H Estimat Average Glucose Hemoglobin A1c % Calcium 8.1 L Phosphorus 2.9 Magnesium 2.0 Hepatitis A IgM Ab Hep Bs Antigen Hep Bs Antibody Hep B Core Total Ab Hepatitis C Ab (EIA) 07/22/24 07/22/24 07/23/24 22:54 23:53 01:06 Hold Purple Top Sodium 143 Potassium 3.3 Chloride 107 Carbon Dioxide 24 Anion Gap 15 BUN 10 Creatinine 1.01 Estim Creat Clear Calc 144.7 Estimated GFR > 60 POC Glucose 207 H 209 H Random Glucose 178 H Estimat Average Glucose Hemoglobin A1c % Calcium 8.3 L Phosphorus Magnesium Hepatitis A IgM Ab Hep Bs Antigen Hep Bs Antibody Hep B Core Total Ab Hepatitis C Ab (EIA) 07/23/24 07/23/24 07/23/24 01:52 03:05 03:54 Hold Purple Top Sodium Potassium Chloride Carbon Dioxide Anion Gap BUN Creatinine Estim Creat Clear Calc Estimated GFR POC Glucose 143 H 121 H 110 Random Glucose Estimat Average Glucose Hemoglobin A1c % Calcium Phosphorus Magnesium Hepatitis A IgM Ab Hep Bs Antigen Hep Bs Antibody Hep B Core Total Ab Hepatitis C Ab (EIA) 07/23/24 07/23/24 07/23/24 05:00 05:19 05:58 Hold Purple Top Sodium 142 Potassium 3.8 Chloride 108 Carbon Dioxide 23 Anion Gap 15 BUN 8 L Creatinine 0.87 Estim Creat Clear Calc 167.9 Estimated GFR > 60 POC Glucose 106 105 Random Glucose 98 Estimat Average Glucose Cancelled Hemoglobin A1c % Cancelled Calcium 8.2 L Phosphorus Magnesium Hepatitis A IgM Ab Hep Bs Antigen Hep Bs Antibody Hep B Core Total Ab Hepatitis C Ab (EIA) 07/23/24 07:18 Hold Purple Top Sodium Potassium Chloride Carbon Dioxide Anion Gap BUN Creatinine Estim Creat Clear Calc Estimated GFR POC Glucose 112 Random Glucose Estimat Average Glucose Hemoglobin A1c % Calcium Phosphorus Magnesium Hepatitis A IgM Ab Hep Bs Antigen Hep Bs Antibody Hep B Core Total Ab Hepatitis C Ab (EIA) Progress Note: A&P Assessment and plan (1) Diabetic ketoacidosis: Status: Acute Plan Patient is a 29 Y M to F w/ psychiatric comorbidities, prior heroin use, and obesity, initially presenting to emergency department on 07/22 w/ subacute polydipsia, polyuria, found to be in DKA N: no acute issues CV: no acute issues R: no acute issues GI: diabetic diet : acute renal insufficiency, likely prerenal, resolved; to monitor electrolytes, renal indices closely H: no acute issues ID: no appreciable stigmata of infection E: new-onset diabetes mellitus c/b DKA, DKA protocol P: bipolar disease, prior heroin use on suboxone Quality Stroke Does the patient have a stroke diagnosis?: No VTE Prior VTE?: No VTE Risk Level:: Medical - moderate - high VTE Device Contraindication: N/A - Device Ordered VTE Drug Contraindication: N/A - Med Ordered
[2024-07-23 08:20] LABS: Glucose, Whole Blood 123 mg/dL (60-115)
[2024-07-23] MEDS: Calcium Gluconate/NaCl,Iso-Osm 1 GM/50 ML PLAST..BAG IV (08:28)
[2024-07-23] MEDS: Buprenorphine/Naloxone 8/2 mg FILM 1 FILM SUBLINGUAL ×3 (08:34→21:20)
[2024-07-23] MEDS: Insulin Glargine,Hum.rec.anlog 100 UNIT/ML 10 ML VIAL 50 UNIT SUBCUT ×2 (08:35→21:22)
[2024-07-23 11:23] LABS: Glucose, Whole Blood 292 mg/dL (60-115)
[2024-07-23] MEDS: Insulin Lispro 100 UNIT/ML 3 ML VIAL SUBCUT ×3 (11:35→21:21)
[2024-07-23] MEDS: Insulin Lispro 100 UNIT/ML 3 ML VIAL 25 UNIT SUBCUT ×3 (11:35→21:21)
[2024-07-23 13:45] LABS: Basophils Percent Auto 0.1 % (0-2); Eosinophils Absolute Auto 0.2 X10*3/uL (0.0-0.4); Hematocrit 40.2 % (42.0-52.0); Hemoglobin 13.8 g/dl (14.0-18.0); Imm Gran Abs Auto 0.05 X10*3/uL (0.00-0.03); Imm Gran Pct Auto 0.7 % (0.0-0.4); Lymphocytes Absolute Auto 1.3 X10*3/uL (1.2-4.9); Lymphocytes Percent Auto 18.7 % (20-40); Mean Corpuscular HGB Conc 34.3 g/dl (31.0-36.0); Mean Corpuscular Hemoglobin 30.9 pg (27.0-33.0); Mean Corpuscular Volume 89.9 fL (80.0-98.0); Mean Platelet Volume 10.4 fL (9.4-12.4); Monocytes Absolute Auto 0.6 X10*3/uL (0.1-1.2); Neutrophils Absolute Auto 4.9 x10*3/uL (2.0-8.3); Neutrophils Percent Auto 69.5 % (45-73); Platelet Count 160 X10*3/uL (160-400); Red Blood Count 4.47 X10*6/uL (4.60-5.80); Red Cell Distribution Width 12.9 % (11.0-16.0)
[2024-07-23 13:53] LABS: MANUAL DIFF FLAG NO
--- NOTE | 2024-07-23 14:01 | PM.EVENT ---
Event Note Date of Service: 07/23/24 Event Note: 29-year-old trans female, transferred from ICU and treated for DKA with new onset diabetes mellitus, discussed with ICU provider. DKA with diabetes mellitus type 2 Recent diagnosis, A1c 13.5 Treated with insulin drip Continue sliding scale, Lantus 50 units b.i.d., insulin lispro 25 units subQ q.i.d. a.c. HS JERONIMO Secondary to DKA Treated with IV fluids Resolved Hypokalemia Secondary to DKA Repleted and resolved Hypernatremia Secondary to DKA Treated with IV fluids and resolved History of transaminitis Abdominal ultrasound in February of 2023 showed borderline liver enlargement with increased hepatic echogenicity in the setting of hepatic steatosis History of hepatitis-C History of substance abuse disorder Continue Suboxone Mental health Continue mental health medications Morbid obesity. BMI 40.1 Weight management DVT prophylaxis with heparin Time Spent With Patient Time: Total time managing care of this patient today ____ minutes.
[2024-07-23] MEDS: busPIRone HCl 10 MG TABLET 20 MG PO ×2 (15:43→21:20)
[2024-07-23 16:42] LABS: Glucose, Whole Blood 293 mg/dL (60-115)
[2024-07-23 20:16] LABS: Glucose, Whole Blood 261 mg/dL (60-115)
[2024-07-23] MEDS: Docusate Sodium 100 MG CAPSULE PO (21:20)
[2024-07-23] MEDS: Topiramate 25 MG TABLET 50 MG PO (21:20)
[2024-07-23] MEDS: OLANZapine 10 MG TABLET 20 MG PO (21:20)
[2024-07-24] MEDS: Heparin Sodium,Porcine 5,000 UNIT/ML VIAL 5000 UNIT SUBCUT ×4 (00:07→23:46)
[2024-07-24 03:54] VITALS: BP 130/72; PULSE 100; RESP 18; TEMP 36.8; O2SAT 96
[2024-07-24 06:43] LABS: MANUAL DIFF FLAG NO
[2024-07-24 07:05] LABS: Anion Gap 12 (12-20); Blood Urea Nitrogen 11 mg/dL (9-16); Calcium 8.8 mg/dL (8.4-10.2); Carbon Dioxide 26 mmol/L (22-29); Chloride 106 mmol/L (96-108); Creatinine Clr Calc Pharmacy 147.3; Estimated Glomerular Filt Rate > 60; Magnesium 2.2 mg/dL (1.6-2.6); Phosphorus 2.4 mg/dL (2.7-4.5); Potassium 4.2 mmol/L (3.3-5.1); Sodium 140 mmol/L (135-145)
[2024-07-24 07:08] LABS: Basophils Percent Auto 0.4 % (0-2); Eosinophils Absolute Auto 0.1 X10*3/uL (0.0-0.4); Eosinophils Percent Auto 2.1 % (0-4); Hematocrit 40.3 % (42.0-52.0); Hemoglobin 12.9 g/dl (14.0-18.0); Imm Gran Abs Auto 0.03 X10*3/uL (0.00-0.03); Imm Gran Pct Auto 0.6 % (0.0-0.4); Lymphocytes Percent Auto 20.4 % (20-40); Mean Corpuscular Hemoglobin 29.5 pg (27.0-33.0); Mean Corpuscular Volume 92.2 fL (80.0-98.0); Monocytes Absolute Auto 0.3 X10*3/uL (0.1-1.2); Neutrophils Absolute Auto 3.4 x10*3/uL (2.0-8.3); Neutrophils Percent Auto 69.5 % (45-73); Platelet Count 138 X10*3/uL (160-400); Red Blood Count 4.37 X10*6/uL (4.60-5.80); Red Cell Distribution Width 12.6 % (11.0-16.0); White Blood Count 4.9 X10*3/uL (4.8-10.8)
[2024-07-24 07:25] LABS: Glucose Random 403 mg/dL (60-115)
[2024-07-24 07:29] VITALS: BP 137/75; PULSE 90; RESP 16; TEMP 36.3; O2SAT 95
[2024-07-24 07:31] VITALS: BMI 38.6
[2024-07-24 07:50] LABS: Glucose, Whole Blood 372 mg/dL (60-115)
[2024-07-24] MEDS: Cholecalciferol (Vitamin D3) 25 MCG TABLET PO (08:31)
[2024-07-24] MEDS: busPIRone HCl 10 MG TABLET 20 MG PO ×3 (08:31→21:39)
[2024-07-24] MEDS: Docusate Sodium 100 MG CAPSULE PO ×2 (08:31→21:39)
[2024-07-24] MEDS: Multivitamin TABLET 1 TAB PO (08:31)
[2024-07-24] MEDS: ARIPiprazole 30 MG TABLET PO (08:31)
[2024-07-24] MEDS: Insulin Lispro 100 UNIT/ML 3 ML VIAL SUBCUT ×4 (08:32→21:40)
[2024-07-24] MEDS: Insulin Glargine,Hum.rec.anlog 100 UNIT/ML 10 ML VIAL 50 UNIT SUBCUT ×2 (08:32→21:40)
[2024-07-24] MEDS: Buprenorphine/Naloxone 8/2 mg FILM 1 FILM SUBLINGUAL ×3 (08:33→21:39)
[2024-07-24] MEDS: Insulin Lispro 100 UNIT/ML 3 ML VIAL 25 UNIT SUBCUT ×4 (08:41→21:40)
[2024-07-24 11:21] LABS: Glucose, Whole Blood 420 mg/dL (60-115)
[2024-07-24 14:51] LABS: Glucose, Whole Blood 225 mg/dL (60-115)
--- NOTE | 2024-07-24 15:11 | PC.NURSE ---
pt provided education on insulin administration, verbalized understanding, pt instructed how to draw up insulin and administered, was able to redemonstrate and administer insulin
[2024-07-24 15:18] VITALS: BP 132/67; PULSE 99; RESP 18; TEMP 36.2; O2SAT 92
--- NOTE | 2024-07-24 15:59 | P.PNIM_ITS ---
Subjective Subjective Date of Service: 07/24/24 Interval History: seen and examined this morning follow up for DKA, new onset diabetes; downgraded from ICU 07/23 reporting hemorrhoid pain no nausea or vomiting Review of Systems Review of Systems: Yes all other systems are reviewed and are negative Constitutional Constitutional: Denies chills and Denies fever(s) Cardiovascular Cardiovascular: Denies chest pain, Denies palpitations and Denies dyspnea Respiratory Respiratory: Denies cough and Denies dyspnea Gastrointestinal Gastrointestinal: Denies abdominal pain, Denies nausea and Denies vomiting Endocrine Endocrine: Denies palpitations Physical Exam 2 Vital Signs: Vital Signs: Last Vital Signs Temp 97.2 F 07/24/24 15:18 Pulse 99 07/24/24 15:18 Resp 18 07/24/24 15:18 BP 132/67 07/24/24 15:18 Pulse Ox 92 07/24/24 15:18 O2 Del Method Room Air 07/24/24 15:18 BMI result Body Mass Index 38.6 Const: General: cooperative, no acute distress, alert and awake Nutritional Appearance: obese Orientation/consciousness: patient oriented x3 Resp: Effort & Inspection: normal respiratory effort, able to speak in complete sentences, no respiratory distress and no use of accessory muscles Cardio: Rate: regular rate GI: Inspection: No distended Palpation (GI): Soft to palpation and nontender Neuro: General: patient oriented x3, No moves all extremities and No CN's II- XI intact bilaterally Objective Data Active Medications Aripiprazole (Aripiprazole 30 Mg Tablet) 30 mg PO DAILY [facility] Last Admin: 07/24/24 08:31 Dose: 30 mg Documented By: JAG Benztropine Mesylate (Benztropine Mesylate 0.5 Mg Tablet) 0.5 mg PO DAILY PRN PRN Reason: EPS Buprenorphine/Naloxone (Buprenorphine/Naloxone 8/2 Mg Film) 1 film SUBLINGUAL TID [facility] Last Admin: 07/24/24 15:03 Dose: 1 film Documented By: JAG Buspirone HCl (Buspirone Hcl 10 Mg Tablet) 20 mg PO TID [facility] Last Admin: 07/24/24 15:03 Dose: 20 mg Documented By: JAG Cyclobenzaprine HCl (Cyclobenzaprine Hcl 5 Mg Tablet) 5 mg PO BEDTIME PRN PRN Reason: muscle spasm Diphenhydramine HCl (Diphenhydramine Hcl 25 Mg Capsule) 25 mg PO Q4H PRN PRN Reason: Allergy Symptoms Docusate Sodium (Docusate Sodium 100 Mg Capsule) 100 mg PO BID [facility] Last Admin: 07/24/24 08:31 Dose: 100 mg Documented By: JAG Glucose (Glucose Gel 15 Gm Gel..Gram.) 15 gm PO Q15M PRN; Protocol PRN Reason: per Hypoglycemia Standing Ord. Heparin Sodium (Porcine) (Heparin Sodium,Porcine 5,000 Unit/Ml Vial) 5,000 unit SUBCUT Q8H [facility] Last Admin: 07/24/24 15:04 Dose: 5,000 unit Documented By: JAG Dextrose (D10) 250 mls @ 750 mls/hr IV Q15M PRN; Protocol PRN Reason: per Hypoglycemia Standing Ord. Ibuprofen (Ibuprofen 600 Mg Tablet) 600 mg PO Q6H PRN PRN Reason: PAIN/FEVER Insulin Glargine (Insulin Glargine,Hum.Rec.Anlog 100 Unit/Ml 10 Ml Vial) 50 unit SUBCUT BID [facility] Last Admin: 07/24/24 08:32 Dose: 50 unit Documented By: JAG Insulin Human Lispro (Insulin Lispro 100 Unit/Ml 3 Ml Vial) 0 unit SUBCUT QIDACHS [facility]; Protocol Last Admin: 07/24/24 12:03 Dose: 12 unit Documented By: JAG Comments: pt self administered Insulin Human Lispro (Insulin Lispro 100 Unit/Ml 3 Ml Vial) 25 unit SUBCUT QIDACHS [facility] Last Admin: 07/24/24 12:03 Dose: 25 unit Documented By: JAG Comments: pt self administered Loratadine (Loratadine 10 Mg Tablet) 10 mg PO DAILY PRN PRN Reason: Allergy Symptoms Magnesium Hydroxide (Milk Of Magnesia 30 Ml Oral.Susp) 30 ml PO DAILY PRN PRN Reason: Constipation Melatonin (Melatonin 3 Mg Tablet) 3 mg PO BEDTIME PRN PRN Reason: Sleep Multivitamins/Vitamin C (Multivitamin Tablet) 1 tab PO DAILY [facility] Last Admin: 07/24/24 08:31 Dose: 1 tab Documented By: JAG Nicotine (Nicotine 21 Mg Patch.Td24) 21 mg TRANSDERMA DAILY [facility] Last Admin: 07/24/24 08:33 Dose: Not Given Documented By: JAG Non-Admin Reason: Patient Refused Nicotine Polacrilex (Nicotine Polacrilex 2 Mg Gum) 2 mg BUCCAL Q2H PRN PRN Reason: Nicotine Cravings Olanzapine (Olanzapine 10 Mg Tablet) 20 mg PO BEDTIME [facility] Last Admin: 07/23/24 21:20 Dose: 20 mg Documented By: TARA Ondansetron HCl (Ondansetron Hcl 4 Mg/2 Ml Vial) 4 mg IVPUSH Q6H PRN PRN Reason: Nausea and Vomiting Polyethylene Glycol (Polyethylene Glycol 3350 17 Gm Powd.Pack) 17 gm PO DAILY PRN PRN Reason: Constipation Topiramate (Topiramate 25 Mg Tablet) 50 mg PO BEDTIME [facility] Last Admin: 07/23/24 21:20 Dose: 50 mg Documented By: TARA Trazodone HCl (Trazodone Hcl 50 Mg Tablet) 50 mg PO BEDTIME PRN PRN Reason: Sleep Vitamin D (Cholecalciferol (Vitamin D3) 25 Mcg Tablet) 25 mcg PO DAILY [facility] Last Admin: 07/24/24 08:31 Dose: 25 mcg Documented By: JAG Labs 07/24/24 05:43 07/24/24 05:43 Labs: Laboratory Results - last 24 hr 07/23/24 07/23/24 07/24/24 16:22 20:08 05:43 MCV 92.2 MCH 29.5 MCHC 32.0 RDW 12.6 Plt Count 138 L MPV 11.0 Immature Gran % (Auto) 0.6 H Neut % (Auto) 69.5 Lymph % (Auto) 20.4 [place] % (Auto) 7.0 Eos % (Auto) 2.1 Baso % (Auto) 0.4 Lymph # (Auto) 1.0 L [place] # (Auto) 0.3 Eos # (Auto) 0.1 Baso # (Auto) 0.0 Abs Immat Gran (auto) 0.03 Absolute Neuts (auto) 3.4 Absolute Nucleated RBC 0.000 Nucleated RBC % (auto) 0.0 Anion Gap 12 Estim Creat Clear Calc 147.3 Estimated GFR > 60 POC Glucose 293 H 261 H Random Glucose 403 H* Calcium 8.8 D Phosphorus 2.4 L Magnesium 2.2 07/24/24 07/24/24 07/24/24 07:38 11:08 14:48 MCV MCH MCHC RDW Plt Count MPV Immature Gran % (Auto) Neut % (Auto) Lymph % (Auto) [place] % (Auto) Eos % (Auto) Baso % (Auto) Lymph # (Auto) [place] # (Auto) Eos # (Auto) Baso # (Auto) Abs Immat Gran (auto) Absolute Neuts (auto) Absolute Nucleated RBC Nucleated RBC % (auto) Anion Gap Estim Creat Clear Calc Estimated GFR POC Glucose 372 H* 420 H* 225 H Random Glucose Calcium Phosphorus Magnesium Assessment and Plan (1) Diabetic ketoacidosis: Status: Acute Plan The patient is a 29 year old transitioning from male to female with history of bipolar 1 disorder, 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 a.c. HS sliding scale tightened follow POCs, continue ADA diet diabetic education will need outpatient follow up JERONIMO Secondary to DKA resolved with IVF Hypokalemia Secondary to DKA Repleted and resolved Hypernatremia Secondary to DKA Treated with IV fluids and resolved History of transaminitis Abdominal ultrasound in February of 2023 showed borderline liver enlargement with increased hepatic echogenicity in the setting of hepatic steatosis History of hepatitis-C similar to previous History of substance abuse disorder Continue Suboxone Mood Continue abilify, buspar, zyprexa, topiramate Morbid obesity. BMI 40.1 Weight management tobacco dependence smoking cessation advised continue NRT DVT prophylaxis with heparin Quality Stroke Does the patient have a stroke diagnosis?: No VTE Prior VTE?: No VTE Risk Level:: Medical - moderate - high VTE Device Contraindication: N/A - Device Ordered VTE Drug Contraindication: N/A - Med Ordered
[2024-07-24 16:09] LABS: Glucose, Whole Blood 276 mg/dL (60-115)
[2024-07-24 19:40] VITALS: BP 131/60; PULSE 89; RESP 18; TEMP 36.2; O2SAT 97
[2024-07-24 20:12] LABS: Glucose, Whole Blood 269 mg/dL (60-115)
[2024-07-24] MEDS: OLANZapine 10 MG TABLET 20 MG PO (21:39)
[2024-07-24] MEDS: Pramoxine HCl 1 % Rectal Foam 15 GM 1 APPL PR (21:39)
[2024-07-24] MEDS: Topiramate 25 MG TABLET 50 MG PO (21:39)
[2024-07-25 04:00] VITALS: BP 136/62; PULSE 75; RESP 18; TEMP 36.2; O2SAT 96
[2024-07-25 06:47] LABS: Hematocrit 38.2 % (42.0-52.0); Hemoglobin 12.5 g/dl (14.0-18.0); Mean Corpuscular HGB Conc 32.7 g/dl (31.0-36.0); Mean Corpuscular Volume 91.6 fL (80.0-98.0); Mean Platelet Volume 11.1 fL (9.4-12.4); NRBC Pct Auto 0.6 /100WBC (0.0-0.2); PLT CLUMP 1; Platelet Count 133 X10*3/uL (160-400); Red Blood Count 4.17 X10*6/uL (4.60-5.80); Red Cell Distribution Width 12.6 % (11.0-16.0); White Blood Count 3.6 X10*3/uL (4.8-10.8)
[2024-07-25 07:04] VITALS: BP 121/60; PULSE 82; RESP 16; TEMP 36.6; O2SAT 97
[2024-07-25 07:05] VITALS: BMI 37.7
[2024-07-25 07:21] LABS: Glucose, Whole Blood 284 mg/dL (60-115)
[2024-07-25] MEDS: Insulin Lispro 100 UNIT/ML 3 ML VIAL 25 UNIT SUBCUT ×2 (07:35→11:50)
[2024-07-25] MEDS: Insulin Lispro 100 UNIT/ML 3 ML VIAL SUBCUT ×3 (07:39→21:59)
[2024-07-25] MEDS: Insulin Glargine,Hum.rec.anlog 100 UNIT/ML 10 ML VIAL 50 UNIT SUBCUT ×2 (08:48→22:00)
[2024-07-25] MEDS: Buprenorphine/Naloxone 8/2 mg FILM 1 FILM SUBLINGUAL ×3 (08:49→21:59)
[2024-07-25] MEDS: Docusate Sodium 100 MG CAPSULE PO ×2 (08:49→21:59)
[2024-07-25] MEDS: Multivitamin TABLET 1 TAB PO (08:49)
[2024-07-25] MEDS: ARIPiprazole 30 MG TABLET PO (08:49)
[2024-07-25] MEDS: Cholecalciferol (Vitamin D3) 25 MCG TABLET PO (08:49)
[2024-07-25] MEDS: busPIRone HCl 10 MG TABLET 20 MG PO ×3 (08:49→21:59)
[2024-07-25] MEDS: Pramoxine HCl 1 % Rectal Foam 15 GM 1 APPL PR ×2 (08:50→22:01)
[2024-07-25] MEDS: Heparin Sodium,Porcine 5,000 UNIT/ML VIAL 5000 UNIT SUBCUT ×2 (08:50→14:46)
[2024-07-25] MEDS: Nicotine 21 MG PATCH.TD24 TRANSDERMA (08:57)
[2024-07-25 11:30] LABS: Glucose, Whole Blood 345 mg/dL (60-115)
[2024-07-25] MEDS: glipiZIDE 5 MG TABLET PO (11:50)
[2024-07-25] MEDS: metFORMIN HCl 850 MG TABLET PO ×2 (11:50→16:46)
--- NOTE | 2024-07-25 13:47 | P.PNIM_ITS ---
Subjective Subjective Date of Service: 07/25/24 Interval History: seen and examined this morning follow up for new onset DM/DKA awake alert, feeling well Review of Systems Review of Systems: Yes all other systems are reviewed and are negative Constitutional Constitutional: Denies chills and Denies fever(s) Cardiovascular Cardiovascular: Denies chest pain, Denies palpitations and Denies dyspnea Respiratory Respiratory: Denies cough and Denies dyspnea Gastrointestinal Gastrointestinal: Denies abdominal pain, Denies diarrhea, Denies nausea and Denies vomiting Endocrine Endocrine: Denies palpitations Physical Exam 2 Vital Signs: Vital Signs: Last Vital Signs Temp 97.8 F 07/25/24 07:04 Pulse 82 07/25/24 07:04 Resp 16 07/25/24 07:04 BP 121/60 07/25/24 07:04 Pulse Ox 97 07/25/24 07:04 O2 Del Method Room Air 07/25/24 07:04 BMI result Body Mass Index 37.7 Const: General: cooperative, no acute distress, alert and awake Nutritional Appearance: obese Orientation/consciousness: patient oriented x3 Resp: Effort & Inspection: normal respiratory effort, able to speak in complete sentences, no respiratory distress and no use of accessory muscles Cardio: Rate: regular rate GI: Inspection: No distended Palpation (GI): Soft to palpation and nontender Neuro: General: patient oriented x3, No moves all extremities and No CN's II- XI intact bilaterally Objective Data Active Medications Aripiprazole (Aripiprazole 30 Mg Tablet) 30 mg PO DAILY [facility] Last Admin: 07/25/24 08:49 Dose: 30 mg Documented By: JAG Benztropine Mesylate (Benztropine Mesylate 0.5 Mg Tablet) 0.5 mg PO DAILY PRN PRN Reason: EPS Buprenorphine/Naloxone (Buprenorphine/Naloxone 8/2 Mg Film) 1 film SUBLINGUAL TID [facility] Last Admin: 07/25/24 08:49 Dose: 1 film Documented By: JAG Buspirone HCl (Buspirone Hcl 10 Mg Tablet) 20 mg PO TID [facility] Last Admin: 07/25/24 08:49 Dose: 20 mg Documented By: JAG Cyclobenzaprine HCl (Cyclobenzaprine Hcl 5 Mg Tablet) 5 mg PO BEDTIME PRN PRN Reason: muscle spasm Diphenhydramine HCl (Diphenhydramine Hcl 25 Mg Capsule) 25 mg PO Q4H PRN PRN Reason: Allergy Symptoms Docusate Sodium (Docusate Sodium 100 Mg Capsule) 100 mg PO BID [facility] Last Admin: 07/25/24 08:49 Dose: 100 mg Documented By: JAG Glipizide (Glipizide 5 Mg Tablet) 5 mg PO DAILY [facility] Last Admin: 07/25/24 11:50 Dose: 5 mg Documented By: JAG Glucose (Glucose Gel 15 Gm Gel..Gram.) 15 gm PO Q15M PRN; Protocol PRN Reason: per Hypoglycemia Standing Ord. Heparin Sodium (Porcine) (Heparin Sodium,Porcine 5,000 Unit/Ml Vial) 5,000 unit SUBCUT Q8H [facility] Last Admin: 07/25/24 08:50 Dose: 5,000 unit Documented By: JAG Dextrose (D10) 250 mls @ 750 mls/hr IV Q15M PRN; Protocol PRN Reason: per Hypoglycemia Standing Ord. Ibuprofen (Ibuprofen 600 Mg Tablet) 600 mg PO Q6H PRN PRN Reason: PAIN/FEVER Insulin Glargine (Insulin Glargine,Hum.Rec.Anlog 100 Unit/Ml 10 Ml Vial) 50 unit SUBCUT BID [facility] Last Admin: 07/25/24 08:48 Dose: 50 unit Documented By: JAG Insulin Human Lispro (Insulin Lispro 100 Unit/Ml 3 Ml Vial) 0 unit SUBCUT QIDAS [facility]; Protocol Last Admin: 07/25/24 11:51 Dose: Not Given Documented By: JAG Non-Admin Reason: Physician Held Med Insulin Human Lispro (Insulin Lispro 100 Unit/Ml 3 Ml Vial) 25 unit SUBCUT QIDACHS [facility] Last Admin: 07/25/24 11:50 Dose: 25 unit Documented By: JAG Loratadine (Loratadine 10 Mg Tablet) 10 mg PO DAILY PRN PRN Reason: Allergy Symptoms Magnesium Hydroxide (Milk Of Magnesia 30 Ml Oral.Susp) 30 ml PO DAILY PRN PRN Reason: Constipation Melatonin (Melatonin 3 Mg Tablet) 3 mg PO BEDTIME PRN PRN Reason: Sleep Metformin HCl (Metformin Hcl 850 Mg Tablet) 850 mg PO BIDWM [facility] Last Admin: 07/25/24 11:50 Dose: 850 mg Documented By: JAG Multivitamins/Vitamin C (Multivitamin Tablet) 1 tab PO DAILY [facility] Last Admin: 07/25/24 08:49 Dose: 1 tab Documented By: JAG Nicotine (Nicotine 21 Mg Patch.Td24) 21 mg TRANSDERMA DAILY [facility] Last Admin: 07/25/24 08:57 Dose: 21 mg Documented By: JAG Nicotine Polacrilex (Nicotine Polacrilex 2 Mg Gum) 2 mg BUCCAL Q2H PRN PRN Reason: Nicotine Cravings Olanzapine (Olanzapine 10 Mg Tablet) 20 mg PO BEDTIME [facility] Last Admin: 07/24/24 21:39 Dose: 20 mg Documented By: TARA Ondansetron HCl (Ondansetron Hcl 4 Mg/2 Ml Vial) 4 mg IVPUSH Q6H PRN PRN Reason: Nausea and Vomiting Polyethylene Glycol (Polyethylene Glycol 3350 17 Gm Powd.Pack) 17 gm PO DAILY PRN PRN Reason: Constipation Pramoxine HCl (Pramoxine Hcl 1 % Rectal Foam 15 Gm) 1 appl [place] BID [facility] Last Admin: 07/25/24 08:50 Dose: 1 appl Documented By: JAG Topiramate (Topiramate 25 Mg Tablet) 50 mg PO BEDTIME [facility] Last Admin: 07/24/24 21:39 Dose: 50 mg Documented By: TARA Trazodone HCl (Trazodone Hcl 50 Mg Tablet) 50 mg PO BEDTIME PRN PRN Reason: Sleep Vitamin D (Cholecalciferol (Vitamin D3) 25 Mcg Tablet) 25 mcg PO DAILY [facility] Last Admin: 07/25/24 08:49 Dose: 25 mcg Documented By: JAG Labs 07/25/24 06:14 07/24/24 05:43 Labs: Laboratory Results - last 24 hr 07/24/24 07/24/24 07/24/24 14:48 16:01 19:55 MCV MCH MCHC RDW Plt Count MPV Absolute Nucleated RBC Nucleated RBC % (auto) POC Glucose 225 H 276 H 269 H 07/25/24 07/25/24 07/25/24 06:14 07:08 11:23 MCV 91.6 MCH 30.0 MCHC 32.7 RDW 12.6 Plt Count 133 L MPV 11.1 Absolute Nucleated RBC 0.020 H Nucleated RBC % (auto) 0.6 H POC Glucose 284 H 345 H Assessment and Plan (1) Diabetic ketoacidosis: Status: Acute Plan The patient is a 29 year old transitioning from male to female with history of bipolar 1 disorder, 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, obesity who presented to the ED with polydypsia and polyuria on 07/22 found to have new onset diabetes and admitted to the ICU for management of DKA, downgraded to the medical floor on 07/23 DKA with new onset diabetes mellitus type 2 A1c 13.5 s/p insulin drip in ICU still with elevated blood sugar will start metformin, glipizide Continue Lantus 50 units b.i.d., insulin lispro 25 units subQ premeal sliding scale tightened follow POCs, continue ADA diet diabetic education will need outpatient follow up JERONIMO Secondary to DKA resolved with IVF Hypokalemia Secondary to DKA Repleted and resolved Hypernatremia Secondary to DKA Treated with IV fluids and resolved History of transaminitis Abdominal ultrasound in February of 2023 showed borderline liver enlargement with increased hepatic echogenicity in the setting of hepatic steatosis History of hepatitis-C similar to previous History of substance abuse disorder Continue Suboxone Mood Continue abilify, buspar, zyprexa, topiramate Morbid obesity. BMI 37.7 Weight management tobacco dependence smoking cessation advised continue NRT DVT prophylaxis with heparin attending - dr. Cross requires ongoing inpatient stay for management of unstable blood sugar Quality Stroke Does the patient have a stroke diagnosis?: No VTE Prior VTE?: No VTE Risk Level:: Medical - moderate - high VTE Device Contraindication: N/A - Device Ordered VTE Drug Contraindication: N/A - Med Ordered
[2024-07-25 15:26] VITALS: BP 137/74; PULSE 96; RESP 18; TEMP 36.7; O2SAT 96
[2024-07-25 16:15] LABS: Glucose, Whole Blood 250 mg/dL (60-115)
[2024-07-25 19:29] VITALS: BP 138/73; PULSE 86; RESP 18; TEMP 36.8; O2SAT 100
[2024-07-25 20:07] LABS: Glucose, Whole Blood 265 mg/dL (60-115)
[2024-07-25] MEDS: OLANZapine 10 MG TABLET 20 MG PO (21:59)
[2024-07-25] MEDS: Topiramate 25 MG TABLET 50 MG PO (21:59)
[2024-07-26] MEDS: Heparin Sodium,Porcine 5,000 UNIT/ML VIAL 5000 UNIT SUBCUT ×2 (00:20→07:49)
[2024-07-26 02:54] VITALS: BP 127/73; PULSE 65; RESP 18; TEMP 36.1; O2SAT 99
[2024-07-26 07:29] LABS: Glucose, Whole Blood 320 mg/dL (60-115)
[2024-07-26 07:40] VITALS: BP 126/70; PULSE 81; RESP 17; TEMP 36.4; O2SAT 95
[2024-07-26] MEDS: Insulin Glargine,Hum.rec.anlog 100 UNIT/ML 10 ML VIAL 50 UNIT SUBCUT (07:48)
[2024-07-26] MEDS: Insulin Lispro 100 UNIT/ML 3 ML VIAL SUBCUT ×2 (07:49→11:45)
[2024-07-26] MEDS: Nicotine 21 MG PATCH.TD24 TRANSDERMA (07:50)
[2024-07-26] MEDS: glipiZIDE 5 MG TABLET PO (07:50)
[2024-07-26] MEDS: metFORMIN HCl 850 MG TABLET PO (07:50)
[2024-07-26] MEDS: Buprenorphine/Naloxone 8/2 mg FILM 1 FILM SUBLINGUAL (07:50)
[2024-07-26] MEDS: busPIRone HCl 10 MG TABLET 20 MG PO (07:50)
[2024-07-26] MEDS: Multivitamin TABLET 1 TAB PO (07:50)
[2024-07-26] MEDS: Docusate Sodium 100 MG CAPSULE PO (07:50)
[2024-07-26] MEDS: Cholecalciferol (Vitamin D3) 25 MCG TABLET PO (07:50)
[2024-07-26] MEDS: ARIPiprazole 30 MG TABLET PO (07:50)
[2024-07-26] MEDS: Pramoxine HCl 1 % Rectal Foam 15 GM 1 APPL PR (07:54)
[2024-07-26 11:23] LABS: Glucose, Whole Blood 309 mg/dL (60-115)
--- NOTE | 2024-07-26 11:35 | PM.DS ---
DS: Providers Provider Date of Service: 07/26/24 Date of admission: 07/22/24 00:10 Primary care physician: Jimmy Heath MD DS: Diagnosis Discharge Diagnosis (1) Diabetic ketoacidosis: Status: Acute DS: Summary Hospital Course Hospital Course: History and physical as per admitting provider. 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 polydypsia and polyuria over the last several weeks. The pt has no family history of diabetes. No personal history of pancreatitis. Denies steroid use. No abdominal pain, nausea, vomiting or diarrhea. On arrival to the emergency room, the patient's blood pressure was 160/93, heart rate 142, temp 98.0,? O2 sat 94% on room air. Laboratory data was significant for WBC 11.8, Sodium 130, potassium 5.0, chloride 88, CO2 17, anion gap 29, BUN 28, creatinine 2.47, random glucose 1245, serum osmo 355, phos 4.7, magnesium 2.8, total bili 1.3, AST 92, ALT 167, alk-phos 208, total protein 8.5, beta hydroxybutyrate 5.08. UA negative for UTI.?VBG 7.32/33/82/17.?Chest x-ray unremarkable. ED course: ? The patient was given a total of 3 L normal saline and was started on an insulin drip. 29-year-old trans person admitted with DKA secondary to new onset diabetes mellitus type 2. Patient was initially admitted to the ICU. A1c found to be 13.5. Initially treated with insulin drip. Transferred to medical floor and started on Lantus b.i.d., insulin lispro 25 q.i.d. and sliding scale. Metformin and glipizide added as well. Blood sugars have maintained in the high 200s low 300s. Patient is asymptomatic and has not developed any more symptoms of DKA. He did have JERONIMO secondary to DKA which resolved with IV fluids. Hyperkalemia, hypernatremia all secondary to DKA, repleted and treated with IV fluids. Patient will be sent home with a new glucose monitor and all the equipment as well as insulin lispro, Lantus and metformin.. Patient should be checking his blood sugars before meals and at bedtime. Patient needs to follow very closely with his primary care provider for medication adjustment. History of transaminitis Abdominal ultrasound in February of 2023 showed borderline liver enlargement with increased hepatic echogenicity in the setting of hepatic steatosis History of hepatitis-C similar to previous History of substance abuse disorder Continue Suboxone Mood Continue abilify, buspar, zyprexa, topiramate Morbid obesity. BMI 37.7 Weight management tobacco dependence smoking cessation advised continue NRT Time Attestation Discharge Coordination Time (in mins): 40 Quality: Safe Use of Opioids Does Pt have an Active Cancer Diagnosis on the Problem List?: No Quality: Stroke Does the patient have a stroke diagnosis?: No Physical Exam Vital Signs: Vital Signs: Last Vital Signs Temp 97.5 F 07/26/24 07:40 Pulse 81 07/26/24 07:40 Resp 17 07/26/24 07:40 BP 126/70 07/26/24 07:40 Pulse Ox 95 07/26/24 07:40 O2 Del Method Room Air 07/26/24 07:40 BMI result Body Mass Index 37.7 Appearing in no acute distress lung sounds are clear to auscultation heart regular rate rhythm, clear S1, S2 positive bowel sounds, abdomen is soft, nontender neuro patient is alert x3, no focal deficits DS: Data Data Completed and Pending Labs on day of discharge: Laboratory Results - last 24 hr 07/25/24 07/25/24 07/26/24 16:11 19:59 07:19 POC Glucose 250 H 265 H 320 H 07/26/24 11:16 POC Glucose 309 H Discharge Plan Discharge Anticipated Discharge Date/Time: 07/26/24 11:23 Patient Disposition: Home Health Service Discharge Diagnosis: Diabetic ketoacidosis Referrals: Jimmy Heath MD [Primary Care Provider] - 1 Week Discharge Medications: New metformin 850 mg Tablet 850 mg PO BIDWM Qty: 60 0RF (DME) FreeStyle Lite Strips Strip Qty: 100 0RF Rx Instructions: Test four times a day or as directed. (DME) blood-glucose meter [FreeStyle Lite Meter] Kit Qty: 1 0RF Rx Instructions: As Directed alcohol swabs Pads, Medicated 1 pad TOPICAL QIDACHS Qty: 100 0RF Rx Instructions: Use four times a day or as directed. insulin lispro [Humalog KwikPen Insulin] 100 unit/mL insulin pen 0 sliding scale dose SUBCUT QIDACHS Qty: 15 0RF Rx Instructions: Blood Sugar: <150 - 0 units 151-200 - 2 units 201-250 - 4 units 251-300 - 6 units 301-350 - 8 units >350 - 10 units insulin glargine [Lantus Solostar U-100 Insulin] 100 unit/mL (3 mL) insulin pen 60 unit SUBCUT BID Qty: 15 0RF (DME) pen needle, diabetic 32 gauge x 1/4 needle Qty: 100 0RF Rx Instructions: Use four times a day or as directed. (DME) lancets [FreeStyle Lancets] 28 gauge misc Qty: 100 0RF Rx Instructions: Test four times a day or as directed. insulin lispro [Humalog KwikPen Insulin] 100 unit/mL insulin pen 25 unit SUBCUT QIDACHS Qty: 15 0RF Continued cyclobenzaprine 5 mg tablet 5 mg PO BEDTIME PRN (Reason: muscle spasm) Qty: 14 0RF cholecalciferol (vitamin D3) 25 mcg (1,000 unit) tablet 25 mcg PO DAILY Qty: 90 0RF polyethylene glycol 3350 17 gram Powder In Packet 17 g PO DAILY PRN (Reason: Constipation) magnesium hydroxide [Milk of Magnesia] 400 mg/5 mL Suspension 30 ml PO DAILY PRN (Reason: Constipation) buspirone 10 mg tablet 20 mg PO TID alum-mag hydroxide-simeth 400-400-40 mg/5 mL Suspension 10 ml PO Q4-6H PRN (Reason: Stomach Upset) aripiprazole 30 mg tablet 30 mg PO DAILY guaifenesin 200 mg/5 mL Liquid 200 - 400 mg PO Q4H PRN (Reason: COUGH/CONGESTION) topiramate 50 mg Tablet 50 mg PO BEDTIME diphenhydramine HCl [Benadryl] 25 mg capsule 25 mg PO Q4H PRN (Reason: Allergy Symptoms) benzoyl peroxide 10 % cleanser 1 appl topical BEDTIME benztropine 0.5 mg tablet 0.5 mg PO DAILY PRN (Reason: EPS) docusate sodium [Colace] 100 mg capsule 100 mg PO BID ibuprofen 600 mg tablet 600 mg PO Q6H PRN (Reason: PAIN/FEVER) loratadine 10 mg tablet 10 mg PO DAILY PRN (Reason: Allergy Symptoms) melatonin 3 mg capsule 3 mg PO BEDTIME PRN (Reason: Sleep) multivitamin Tablet 1 tab PO DAILY naloxone [Narcan] 4 mg/actuation spray,non-aerosol 4 mg intranasal Q2M PRN (Reason: OUD) Rx Instructions: spray 1 dose into ONE nostril; alternate nostrils w each dose until help arrives nicotine (polacrilex) 2 mg gum 2 mg buccal Q2H PRN (Reason: Nicotine Cravings) nicotine 21 mg/24 hr patch 24 hour 1 patch transdermal DAILY sennosides 17.2 mg tablet 17.2 mg PO BID PRN (Reason: Constipation) buprenorphine-naloxone [Suboxone] 8-2 mg film 1 film sublingual TID Rx Instructions: place 1 film on inside of (each) cheek trazodone 50 mg tablet 50 mg PO BEDTIME PRN (Reason: Sleep) olanzapine [Zyprexa] 20 mg tablet 20 mg PO BEDTIME lidocaine-prilocaine 2.5-2.5 % cream 1 appl topical TID PRN (Reason: PRIOR TO ELECTOLYSIS) Discharge Orders: Discharge Order (Routine); Ordered 07/26/24 Ordered By: Skye Hitchcock Diet: Diabetic diet Activity on Discharge: As tolerated Stand Alone Forms: Patient Portal Discharge page Print Language: [place] Citizen Care Plan Goals: Check blood sugars before meals and at bedtime, document and share with your primary care provider to manage your medications You have been started on several new medications for diabetes mellitus including Lantus insulin, lispro insulin, metformin. Make sure to check your blood sugars before administering insulin to avoid hypoglycemia. Health Concerns: Diabetic ketoacidosis Plan of Treatment: Follow-up with primary care provider for close management of diabetes mellitus Take all medications as prescribed Assessment: See discharge summary
--- NOTE | 2024-07-26 13:07 | W.MHC.F2F ---
Service Date Service Date: 07/26/24 Encounter Date of encounter: 07/26/24 Reasons for Services Signs and symptoms assessed: DKA JERONIMO Reason for shelter: administration of IV, SQ, or IM injection (teach), diabetic teaching and medication management Homebound: Leaving the home is medically contraindicated at this time without the asist of a device and/or another person due th the listed conditions above and below. Reason homebound: other (Hospital discharge ) Certification: Based on the above findings, I certify that this patient is confined to the home and needs intermittent shelter care, physical therapy and/or speech therapy, or continues to need occupational therapy. The patient is under my care, and I have initiated the establishment of the plan of care. The patient will be followed by a physician who will periodically review the plan of care. Time Spent With Patient Time: Total time managing care of this patient today ____ minutes.
--- NOTE | 2024-07-26 13:18 | MHC.CM.PN ---
pt dcd home with mahamed
== END 2024-07-26 12:49 | disposition home health service (06) | DRG 420 ==
LOC: HO.ED 07-22 00:13 → HO.EDOVER 07-22 00:42 → HO.ICU 07-22 00:54 → HO.S3 07-23 12:46
PROVIDERS: Emergency Medicine; Internal Medicine Critical Care Medicine; Physician Assistant Medical; Admitting Provider Nurse Practitioner Family; Emergency Provider Internal Medicine; PCP Internal Medicine; Visit Provider Nurse Practitioner Acute Care
DX: E11.10 Type 2 diabetes mellitus with ketoacidosis without coma (principal); E87.0 Hyperosmolality and hypernatremia; N17.9 Acute kidney failure, unspecified; K76.0 Fatty (change of) liver, not elsewhere classified; E87.6 Hypokalemia; E66.01 Morbid (severe) obesity due to excess calories; Z68.41 Body mass index [BMI] 40.0-44.9, adult; F11.20 Opioid dependence, uncomplicated; F39 Unspecified mood [affective] disorder; F31.9 Bipolar disorder, unspecified; F64.0 Transsexualism; Z20.822 Contact with and (suspected) exposure to COVID-19; Z86.19 Personal history of other infectious and parasitic diseases; Z87.891 Personal history of nicotine dependence; Z79.4 Long term (current) use of insulin; Z79.84 Long term (current) use of oral hypoglycemic drugs; Z79.899 Other long term (current) drug therapy
CPT/HCPCS: 0241U; 36415; 71045; 80048; 80053; 80061; 81001; 82010; 82803; 82947; 83036; 83735; 83930; 84100; 84443; 85025; 85027; 86704; 86706; 86709; 86803; 87340; 90656; 93005; 99285; J0613; J1644; J7120

== ENCOUNTER → 2024-07-21 22:15 | Outpatient (BNV) | payer OTHER, SELFPAY | PROVIDERS: Admitting Provider Nurse Practitioner Family; Emergency Provider Internal Medicine; PCP Internal Medicine; Visit Provider Internal Medicine | DX: R00.0 Tachycardia, unspecified (principal) | CPT/HCPCS: 93010 ==

== ENCOUNTER → 2024-07-22 00:10 | Outpatient (BNV) | payer OTHER, SELFPAY | PROVIDERS: Admitting Provider Nurse Practitioner Family; Emergency Provider Internal Medicine; PCP Internal Medicine; Visit Provider Nurse Practitioner Acute Care | DX: E13.10 Other specified diabetes mellitus with ketoacidosis without coma (principal) | CPT/HCPCS: 99232; 99239; 99499; G0180 ==

== ENCOUNTER → 2024-07-22 00:10 | Outpatient (BNV) | payer OTHER, SELFPAY | PROVIDERS: Admitting Provider Nurse Practitioner Family; Emergency Provider Internal Medicine; Visit Provider Nurse Practitioner Family | DX: E13.10 Other specified diabetes mellitus with ketoacidosis without coma (principal) | CPT/HCPCS: 99223; 99233 ==

== ENCOUNTER 2024-07-29 09:22 | Outpatient (AMB) | payer OTHER, SELFPAY ==
--- NOTE | 2024-07-29 09:24 | A.OFFPC_ITS ---
Vital Signs 07/29/24 09:27 Height 5 ft 11 in Weight 275 lb 2 oz BMI 38.4 BP 130/74 Blood Pressure Location Lt brachial Position Sitting Pulse 90 Pulse Source Pulse Oximeter Pulse Oximetry (%) 94 Oxygen Delivery Method Room Air Int[place] [facility] [place] Int[place] Note: Patient is here for hospital discharge follow up. [place] was [place] [facility] [place] 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 blood-glucose meter (FreeStyle Lite Meter kit) As Directed buprenorphine-naloxone 8-2 mg (Suboxone) 1 film sublingual TID buspirone 20 mg PO TID cholecalciferol (vitamin D3) 25 mcg PO DAILY cyclobenzaprine 5 mg PO BEDTIME PRN diphenhydramine HCl (Benadryl) 25 mg PO Q4H PRN docusate sodium (Colace) 100 mg PO BID guaifenesin 200 - 400 mg PO Q4H PRN ibuprofen 600 mg PO Q6H PRN insulin glargine (Lantus Solostar U-100 Insulin) 60 units (0.6 mL) subcut BID insulin lispro (Humalog KwikPen (U-100) Insulin) Blood Sugar: <150 - 0 units 1 51-200 - 2 units 201-250 - 4 units 251-300 - 6 units 301-350 - 8 units >350 - 10 units insulin lispro (Humalog KwikPen (U-100) Insulin) 25 units (0.25 mL) subcut QIDACHS lancets (FreeStyle Lancets) Test four times a day or as directed. lidocaine-prilocaine 2.5-2.5 % 1 appl topical TID PRN loratadine 10 mg PO DAILY PRN magnesium hydroxide (Milk of Magnesia) 30 mL PO DAILY PRN melatonin 3 mg PO BEDTIME PRN metformin 850 mg PO BIDWM multivitamin 1 tab PO DAILY naloxone 4 mg/actuation (Narcan) 4 mg intranasal Q2M PRN olanzapine (Zyprexa) 20 mg PO BEDTIME pen needle, diabetic Use four times a day or as directed. polyethylene glycol 3350 17 grams PO DAILY PRN sennosides 17.2 mg PO BID PRN topiramate 50 mg PO BEDTIME trazodone 50 mg PO BEDTIME PRN Tobacco use date assessed: 07/29/24 Dental Screening Dental Screen Date: 07/29/24 Did you have a dental visit in the last 12 months?: No Did you have a dental problem in the last 6 months where you did not have access to dental care?: No Was dental information given to patient?: No [facility] Medical History (Updated 07/29/24 @ 12:06 by Danielle Woods PA-C) Diabetes mellitus History of heroin use Bipolar 1 disorder Surgical History No pertinent past surgical history Family History (Updated 07/29/24 @ 09:33 by SIENNA Munoz) Mother No problems noted. Father No problems noted. Other Mental health disorder Substance use disorder Social History (Updated 07/29/24 @ 09:33 by SIENNA Munoz) Household Members: Caregiver Housing: Assisted Living Facility Alcohol intake: never Patient Tobacco Use Status: Former Tobacco user Tobacco use type: Cigarette Cigarettes Per Day: 10 e-Cigarette/Vaping Use: Currently Using service: No Current occupational status: unemployed Cognitive needs: No Hearing needs: No Vision needs: No Questionnaire PHQ-9 Over the last 2 weeks, how often have you been bothered by any of the following problems? 1. Little interest or pleasure in doing things: not at all 2. Feeling down, depressed, or hopeless: not at all 3. Trouble falling or staying asleep, or sleeping too much: not at all 4. Feeling tired or having little energy: not at all 5. Poor appetite or overeating: not at all 6. Feeling bad about yourself - or that you are a failure or have let yourself or your family down: not at all 7. Trouble concentrating on things, such as reading the newspaper or watching television: not at all 8. Moving or speaking so slowly that other people could have noticed. Or the opposite - being so fidgety or restless that you have been moving around a lot more than usual: not at all 9. Thoughts that you would be better off or of hurting yourself in some way: not at all Total score: 0 Depression Screening Interpretation: Negative Depression Screening Done: Yes Source: Developed by Drs. Conor Oconnor, Ana Garces, Wayne Rodriguez and colleagues, with an educational manuel from [employer]. Thrive Questionnaire Date Thrive assessed: 07/22/24 AUDIT C Alcohol Use Questionnaire (AUDIT-C) 1. How often do you have a drink containing alcohol?: Never Total Score: 0 BALBINA-7 AMB Questionnaire BALBINA-7 Date BALBINA - 7 assessed: 07/29/24 Feeling nervous, anxious, or on edge: 2 = More than half the days Not being able to stop or control worryin = Nearly every day Worrying too much about different things: 3 = Nearly every day Trouble relaxin = Nearly every day Being so restless that it is hard to sit still: 3 = Nearly every day Becoming easily annoyed or irritable: 1 = Several days Feeling afraid as if something awful might happen: 3 = Nearly every day Total BALBINA-7 score (0-4 normal; 5-9 mild; 10-14 moderate; 15-21 severe): 18 Source: Developed by Drs. Conor Oconnor, Ana Garces, Wayne Rodriguez and colleagues, with an educational manuel from [employer]. Physical exam (Primary Care) Vital Signs: Last Vital Signs Pulse 90 07/29/24 09:27 BP 130/74 07/29/24 09:27 Pulse Ox 94 07/29/24 09:27 Oxygen Delivery Method Room Air 07/29/24 09:27 BMI result Body Mass Index 38.4 Tobacco/Smoking Status: Tobacco use Status Tobacco use date assessed 07/29/24 07/29/24 09:36 Patient Tobacco Use Status Former Tobacco user 07/29/24 09:36 Tobacco use type Cigarette 07/29/24 09:36 e-Cigarette/Vaping Use Currently Using 12/05/24 09:36 PHQ-9: PHQ-9 Score PHQ-9: Total score 0 07/29/24 11:47 Depression Screening Interpretation: Negative Thrive Assessment: Date of Thrive Assessment Date Thrive assessed 07/22/24 07/29/24 09:36 Office Procedures Flu Questionnaire Does the patient have a severe egg allergy?: No Does the patient have severe life threatening allergies?: No Does the patient have a fever or illness today?: No Has the patient ever had Guillain-Hayward Syndrome?: No Has the patient ever had any past reaction to a flu shot?: No Immunizations Fluarix Triv [id number] (PF) 45 mcg (15 mcg x 3)/0.5 mL IM syringe Performing Provider: Jimmy Heath MD [place] [facility] [place] [facility] Administered by: Nereida Major RN on 07/29/24 09:48 Dose Route Admin Location Dispensed Lot Number Expiration Date NDC Casing Blower 0.5 mL IM Right Deltoid 0.5 mL [id number] 02/21/25 [id number] [employer] VIS Given Date VIS Provided VIS Publication Date 07/29/24 Single Vaccine 21 Eligibility Eligibility Date Funding Source Not [facility] Eligible 07/29/24 Private Coding Level of Care Code Est Pt Level 4 (46283) Complex EM visit Add On G2211 Diagnoses Diabetes mellitus E11.9 Obesity (BMI 30-39.9) E66.9 Tobacco dependence F17.200 Assessment & Plan Assessment & Plan (1) Diabetes mellitus: Code(s): E11.9 - Type 2 diabetes mellitus without complications Category: Medical Plan: See below for plan. (2) Obesity (BMI 30-39.9): Code(s): E66.9 - Obesity, unspecified Category: Medical Plan: See below. (3) Tobacco dependence: Code(s): F17.200 - Nicotine dependence, unspecified, uncomplicated Category: Medical Plan: Patient educated on smoking cessation. Orders: Orders Lipid Panel Today Danielle Woods PA-C Z00.00 - Encounter for general adult medical examination without abnormal findings TSH reflex Free T4 Today Danielle Woods PA-C E11.9 - Type 2 diabetes mellitus without complications Insulin Auto Antibody Today Danielle Woods PA-C E11.9 - Type 2 diabetes mellitus without complications Hemoglobin A1c Today Danielle Woods PA-C E11.9 - Type 2 diabetes mellitus without complications Vitamin D 25-OH Total Today Danielle Woods PA-C R79.89 - Other specified abnormal findings of blood chemistry Influenza [id number] Immunization Today Jimmy Heath MD Z23 - Encounter for immunization Glutamic acid decarboxylase Ab Today Danielle Woods PA-C E11.9 - Type 2 diabetes mellitus without complications Complete Blood Count Auto Diff Today Danielel Woods PA-C Z00.00 - Encounter for general adult medical examination without abnormal findings Comprehensive [place]. Panel Fast Today Danielle Woods PA-C Z00.00 - Encounter for general adult medical examination without abnormal findings Vitamin B12 and Folate Today Danielle Woods PA-C R79.89 - Other specified abnormal findings of blood chemistry Scribe Plan - Not visible on output: History of Present Illness Patient presents to the office today for a follow up visit after being discharged from [facility] for new onset Diabetes. Patient was seen and admitted at [facility] on 07/21/2024 Patient was discharged from [facility] on 07/26/2024 The patient is a 29-year-old born male transitioning to female who is currently residing at a residential who presents with residential staff member who presenting with a recent diagnosis of diabetes mellitus. The patient reports being hospitalized approximately one week ago for hyperglycemia, with blood sugar levels measuring over 1100 mg/dL. The symptoms initiating the hospital visit included confusion, shakiness, frequent urination, and intense thirst that developed gradually over several months. He was admitted to [facility] from the Friday before until the following Friday, during which he received IV insulin. Upon discharge, the patient was prescribed Humalog and Lantus insulin, along with metformin. He reports difficulty with administering the bedtime insulin dose due to a lack of support in his living arrangement. The patient follows a regimen of three insulin doses administered by visiting nurses, with blood glucose levels recorded as 264 mg/dL in the morning and generally in the 200s over the past few days. The patient experiences reduced thirst and urination but reports ongoing challenges with obesity and expresses an intention to initiate weight loss through walking exercises. Additionally, he states he is not experiencing abdominal or chest pain, nausea, or diarrhea. Social History - Resides in a sober living program - Currently unemployed and receives SSI - Exercise: Plans to start walking once winter clothing arrives - Smokes cigarettes and is not interested in cessation - Uses Suboxone prescribed by a psychiatrist for previous substance use Review of Systems - Endocrine: Reports persistent thirst (though reduced) - Genitourinary: Denies excessive urination - Gastrointestinal: Denies abdominal pain, nausea, diarrhea - Cardiovascular: Denies chest pain Physical Exam Appearance: Alert. Oriented X3. No acute distress. ? Head: Normal external exam. Normocephalic. Atraumatic.? No Huggins signs noted. No raccoon eyes noted Eyes: PERRLA. EOMI. Conjunctiva and sclera normal. Eyelids normal. ? ENT: EAC normal. TM's Normal. Pharynx normal. Uvula midline. Moist mucous m embranes. ? No trismus noted.? No drooling noted.? No muffled voice noted. Neck: Normal inspection. Neck supple. FROM. No adenopathy. Thyroid Normal. No meningeal signs. No neck mass noted. CVS: Normal heart rate and rhythm. Heart sound normal. No murmurs noted. Pulses normal throughout. Respiratory: No respiratory distress. Painless inspiration. Breath sounds normal. No wheezes/rales/rhonchi noted. Chest nontender. ? No accessory muscle usage noted or decreased air movement noted. Abdomen: Soft and nontender. Bowel sounds normal in all 4 quadrants. No distention noted.? No organomegaly noted.? No visible injury noted. Back: ?No CVA tenderness.? Full range of motion noted. Skin: Skin warm and dry.? Normal skin color.? Normal skin turgor. No rashes/lesions/lacerations noted. Extremities: No lower extremity edema. ? Extremities exhibit normal range of motion.? Extremities nontender. Neuro: Oriented X 3.? No motor deficit.? No sensory deficit.? Reflexes normal. Results - Labs: Blood glucose consistently elevated, most recent morning level at 264 mg/dL Plan - Diabetes Mellitus: Blood glucose control needs improvement. Orders are for additional blood work to determine if the patient is type 1 or type 2 diabetic. Adjustments to current insulin regimen to include education on self- administration of the bedtime dose. A glucometer prescription for self- monitoring blood glucose levels has been made. Monitor blood pressure and cholesterol due to diabetes history. - Obesity: Encourage weight loss through diet and exercise; patient plans to begin walking. - Tobacco use disorder: No intervention as the patient is not interested in cessation. Patient was informed and verbally consented to the use of an ambient scribe for clinic note documentation during this visit. Discussion Notes During the consultation, I explained the importance of monitoring blood glucose levels regularly and potential implications of not receiving the full prescribed insulin regimen, particularly regarding the omitted bedtime dose. I highlighted the need for blood work to differentiate between type 1 and type 2 diabetes, as this will impact ongoing treatment decisions. We discussed possible management strategies, including lifestyle modifications for obesity. I also emphasized the importance of bringing the glucometer and insulin pens to the next appointment for diabetes education. Follow-up was scheduled to evaluate insulin administration technique and to review blood glucose records. The importance of maintaining a smoke-free environment was mentioned, though the patient declined cessation support. Patient Instructions - Return for follow-up with a glucometer and insulin pens in 1 week. - Continue current medications as prescribed. Lantus was changed to 60 units at 08:00 and 60 units at 17:00. Humalog was changed to 25 units at breakfast. 25 units at lunch. 25 units at snack time. - Begin walking exercises regularly to aid weight loss. - Check blood glucose levels as advised and record results. - Schedule and complete blood work as ordered. - Monitor for symptoms that may indicate complications from diabetes.
[2024-07-29 09:27] VITALS: BP 130/74; PULSE 90; O2SAT 94; BMI 38.4
== END 2024-07-29 10:34 | disposition home or self-care (01) ==
PROVIDERS: PCP Internal Medicine; Visit Provider Internal Medicine
DX: E11.9 Type 2 diabetes mellitus without complications (principal); E66.9 Obesity, unspecified; Z68.38 Body mass index [BMI] 38.0-38.9, adult; F17.200 Nicotine dependence, unspecified, uncomplicated; Z23 Encounter for immunization

== ENCOUNTER → 2024-07-29 09:22 | Outpatient (BNVA) | payer OTHER, SELFPAY | PROVIDERS: PCP Internal Medicine; Visit Provider Internal Medicine | DX: Z23 Encounter for immunization (principal); E11.9 Type 2 diabetes mellitus without complications; E66.9 Obesity, unspecified; F17.200 Nicotine dependence, unspecified, uncomplicated; Z71.6 Tobacco abuse counseling | CPT/HCPCS: 90471; 90656; 96127; 99212 ==

== ENCOUNTER 2024-08-03 09:09 | Outpatient (REF) | payer OTHER, SELFPAY ==
[2024-08-03 09:38] LABS: MANUAL DIFF FLAG NO
[2024-08-03 09:55] LABS: Basophils Percent Auto 0.5 % (0-2); Eosinophils Absolute Auto 0.2 X10*3/uL (0.0-0.4); Eosinophils Percent Auto 2.5 % (0-4); Hematocrit 43.2 % (42.0-52.0); Hemoglobin 14.5 g/dl (14.0-18.0); Imm Gran Abs Auto 0.05 X10*3/uL (0.00-0.03); Imm Gran Pct Auto 0.8 % (0.0-0.4); Lymphocytes Absolute Auto 1.8 X10*3/uL (1.2-4.9); Lymphocytes Percent Auto 28.2 % (20-40); Mean Corpuscular HGB Conc 33.6 g/dl (31.0-36.0); Mean Corpuscular Hemoglobin 30.1 pg (27.0-33.0); Mean Corpuscular Volume 89.6 fL (80.0-98.0); Monocytes Absolute Auto 0.5 X10*3/uL (0.1-1.2); Monocytes Percent Auto 7.5 % (2-11); Neutrophils Absolute Auto 3.8 x10*3/uL (2.0-8.3); Neutrophils Percent Auto 60.5 % (45-73); Platelet Count 219 X10*3/uL (160-400); Red Blood Count 4.82 X10*6/uL (4.60-5.80); Red Cell Distribution Width 12.5 % (11.0-16.0); White Blood Count 6.3 X10*3/uL (4.8-10.8)
[2024-08-03 10:10] LABS: Estimated Average Glucose 292 mg/dL; Hemoglobin A1C 381.5245 umol/L; Hemoglobin A1c % 11.8 % (<6.0); Total Hemoglobin (HGBA1C) 3610.6989 umol/L
[2024-08-03 10:33] LABS: Erythrocyte Sedimentation Rate 8 MM/HR (0-15)
[2024-08-03 11:15] LABS: Folate 17.4 ng/mL (> or = 4.0); Vitamin B12 726 pg/mL (200-900)
[2024-08-03 11:39] LABS: Alanine Aminotransferase 306 U/L (0-40); Albumin Level 3.9 g/dL (3.5-5.0); Alkaline Phosphatase 120 U/L (39-117); Anion Gap 13 (12-20); Aspartate Amino Transferase 196 U/L (5-37); Bilirubin Total 0.5 mg/dL (0.0-1.0); Blood Urea Nitrogen 6 mg/dL (9-16); C Reactive Protein 0.21 mg/dL (< or = 0.50); Calcium 8.9 mg/dL (8.4-10.2); Carbon Dioxide 25 mmol/L (22-29); Chloride 107 mmol/L (96-108); Cholesterol 130 mg/dL (<200); Estimated Glomerular Filt Rate > 60; Glucose Fasting 103 mg/dL (60-99); HDL Cholesterol 41 mg/dL (>40); LDL Cholesterol Calculated 73 mg/dL (<100); Potassium 3.9 mmol/L (3.3-5.1); Sodium 141 mmol/L (135-145); Total Protein 7.3 g/dL (6.5-8.0); Triglycerides 82 mg/dL (<150)
[2024-08-03 11:41] LABS: TSH reflex Free T4 1.39 uIU/mL (0.32-4.0); Vitamin D 25-OH Total 29.8 ng/mL (>30)
[2024-08-05 08:19] LABS: HBsAGNum1 0.56 S/CO (0.00-0.99); Hepatitis A Antibody IgM 0.15 Index (0-0.79); Hepatitis B Core Antibody Nonreactive (Nonreactive); Hepatitis B Surface Antigen Negative (Negative); ~HepC Num1 14.51 S/CO (0.00-0.79); ~Hepatitis A Antibody IgM Nonreactive (Nonreactive); ~Hepatitis B Surface Antibody NONREACTIVE (Nonreactive); ~Hepatitis C Antibody Reactive (Nonreactive)
[2024-08-07 21:58] LABS: Glutamic acid decarboxylase Ab <5 IU/mL (<5)
[2024-08-12 04:09] LABS: Insulin Auto Antibody <0.4 U/mL (<0.4)
== END 2024-08-03 09:10 | disposition home or self-care (01) ==
LOC: HO.LAB 09:09
PROVIDERS: PCP Internal Medicine; Visit Provider Physician Assistant Medical
DX: Z00.00 Encounter for general adult medical examination without abnormal findings (principal); E11.9 Type 2 diabetes mellitus without complications; R79.89 Other specified abnormal findings of blood chemistry; R74.01 Elevation of levels of liver transaminase levels
CPT/HCPCS: 36415; 80053; 80061; 82306; 82607; 82746; 83036; 84443; 85025; 85652; 86140; 86337; 86341; 86704; 86706; 86709; 86803; 87340

== ENCOUNTER 2024-08-04 14:41 | Outpatient (REF) | payer OTHER, SELFPAY | END 2024-08-04 14:42 | disposition home or self-care (01) | LOC: HO.LAB 14:41 | PROVIDERS: Visit Provider Physician Assistant Medical | DX: Z13.89 Encounter for screening for other disorder (principal) ==

== ENCOUNTER 2024-08-05 10:06 | Outpatient (AMB) | payer OTHER, SELFPAY ==
[2024-08-05 10:24] VITALS: BP 130/70; PULSE 85; O2SAT 97; BMI 38.7
--- NOTE | 2024-08-05 10:24 | MHC.PC.OV ---
Vital Signs 08/05/24 10:24 Height 5 ft 11 in Weight 277 lb 8 oz BMI 38.7 BP 130/70 Blood Pressure Location Lt brachial Position Sitting Pulse 85 Pulse Source Pulse Oximeter Pulse Oximetry (%) 97 Oxygen Delivery Method Room Air Intake Visit Reasons: 1 week f/u Intake Note: Patient is here to follow up on DM. 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 blood-glucose meter (FreeStyle Lite Meter kit) As Directed buprenorphine-naloxone 8-2 mg (Suboxone) 1 film sublingual TID buspirone 20 mg PO TID cholecalciferol (vitamin D3) 25 mcg PO DAILY cyclobenzaprine 5 mg PO BEDTIME PRN diphenhydramine HCl (Benadryl) 25 mg PO Q4H PRN docusate sodium (Colace) 100 mg PO BID guaifenesin 200 - 400 mg PO Q4H PRN ibuprofen 600 mg PO Q6H PRN insulin glargine (Lantus Solostar U-100 Insulin) 60 units (0.6 mL) subcut BID insulin lispro (Humalog KwikPen (U-100) Insulin) Blood Sugar: <150 - 0 units 151-200 - 2 units 201-250 - 4 units 251-300 - 6 units 301-350 - 8 units >350 - 10 units insulin lispro (Humalog KwikPen (U-100) Insulin) 25 units (0.25 mL) subcut QIDACHS lancets (FreeStyle Lancets) Test four times a day or as directed. lidocaine-prilocaine 2.5-2.5 % 1 appl topical TID PRN loratadine 10 mg PO DAILY PRN magnesium hydroxide (Milk of Magnesia) 30 mL PO DAILY PRN melatonin 3 mg PO BEDTIME PRN metformin 850 mg PO BIDWM multivitamin 1 tab PO DAILY naloxone 4 mg/actuation (Narcan) 4 mg intranasal Q2M PRN olanzapine (Zyprexa) 20 mg PO BEDTIME pen needle, diabetic Use four times a day or as directed. polyethylene glycol 3350 17 grams PO DAILY PRN sennosides 17.2 mg PO BID PRN topiramate 50 mg PO BEDTIME trazodone 50 mg PO BEDTIME PRN Tobacco use date assessed: 07/29/24 Dental Screening Dental Screen Date: 07/29/24 [facility] Medical History (Updated 08/05/24 @ 11:20 by Danielle Woods PA-C) Hepatitis C Diabetes mellitus History of heroin use Bipolar 1 disorder Surgical History No pertinent past surgical history Family History Mother No problems noted. Father No problems noted. Other Mental health disorder Substance use disorder Social History Household Members: Caregiver Housing: Assisted Living Facility Alcohol intake: never Patient Tobacco Use Status: Former Tobacco user Tobacco use type: Cigarette Cigarettes Per Day: 10 e-Cigarette/Vaping Use: Currently Using Second Hand Smoke Exposure: Yes service: No Current occupational status: unemployed Cognitive needs: No Hearing needs: No Vision needs: No Questionnaire Thrive Questionnaire Date Thrive assessed: 07/22/24 [place]-7 AMB Questionnaire [place]-7 Date [place] - 7 assessed: 07/29/24 Source: Developed by Drs. Conor Oconnro, Ana Garces, Wayne Rodriguez and colleagues, with an educational manuel from [employer]. Physical exam (Primary Care) Vital Signs: Last Vital Signs Pulse 85 08/05/24 10:24 BP 130/70 08/05/24 10:24 Pulse Ox 97 08/05/24 10:24 Oxygen Delivery Method Room Air 08/05/24 10:24 BMI result Body Mass Index 38.7 Tobacco/Smoking Status: Tobacco use Status Tobacco use date assessed 07/29/24 08/05/24 10:27 Patient Tobacco Use Status Former Tobacco user 08/05/24 10:27 Tobacco use type Cigarette 08/05/24 10:27 e-Cigarette/Vaping Use Currently Using 08/05/24 10:27 Thrive Assessment: Date of Thrive Assessment Date Thrive assessed 07/22/24 08/05/24 10:27 Coding Level of Care Code Est Pt Level 4 (84884) Complex EM visit Add On G2211 Diagnoses Diabetes mellitus E11.9 Hepatitis C B19.20 Elevated AST (SGOT) R74.01 Elevated ALT measurement R74.01 Obesity (BMI 30-39.9) E66.9 Assessment & Plan Assessment & Plan (1) Diabetes mellitus: Code(s): E11.9 - Type 2 diabetes mellitus without complications Category: Medical Plan: see below (2) Hepatitis C: Code(s): B19.20 - Unspecified viral hepatitis C without hepatic coma Category: Medical Plan: see below (3) Elevated AST (SGOT): Code(s): R74.01 - Elevation of levels of liver transaminase levels Category: Medical Plan: see below (4) Elevated ALT measurement: Code(s): R74.01 - Elevation of levels of liver transaminase levels Category: Medical Plan: see below (5) Obesity (BMI 30-39.9): Code(s): E66.9 - Obesity, unspecified Category: Medical Plan: see below Plan Plan - Continue with insulin therapy emphasizing blood glucose monitoring. - Ensure prior authorization for diabetes supplies, including glucometer and insulin strips. Considering Dexacom. - Referral to infectious diseases for further evaluation and management of Hepatitis C. - Schedule follow-up in one month for reassessment of diabetes management and pending lab results. - Discuss dietary modifications and plans for increased physical activity including walking and stair exercises. Orders: Referrals Infectious Disease Referral B19.20 - Unspecified viral hepatitis C without hepatic coma, R79.89 - Other specified abnormal findings of blood chemistry [employer] Referral E11.9 - Type 2 diabetes mellitus without complications, E66.9 - Obesity, unspecified Scribe Plan - Not visible on output: History of Present Illness The patient is a 29-year-old male transitioning to female uses pronoun's They, them who is presenting for follow up to discuss Diabetes Mellitus. Patient has been taking their NovoLog and Lantus as prescribed. They brought their glucose monitor and glucose have been in the 68 through 160 when he is checking it before meals. His intermediate staff member nurse is at bedside and she has been training him to check his own glucose levels and administer his own insulin. He inquired about managing insulin doses in the context of missed meals. The patient has a prescribed glucometer, but faced challenges in acquiring diabetes supplies due to a pending prior authorization. There have been discussions with the pharmacy regarding insurance coverage. Additionally, a Hemoglobin A1c result remains pending to confirm the type of diabetes. The patient?s treatment includes insulin administration and dietary modifications with a focus on maintaining normal blood glucose levels. Patient's prior labs performed on Friday had elevated AST and ALT. Hepatitis a, B and C were added. Patient was negative for hepatitis a and B. Patient was positive for hepatitis-C. He had an ultrasound in 2022 which revealed hepatic steatosis otherwise no other acute processes. He has not been treated for hepatitis-C in the past. He reports a history of IV drug use in the past. He is currently not utilizing any IV drugs at this time. Patient is currently on Suboxone taking as prescribed. Patient denies any other symptoms complaints or concerns at this time. Social History - Resides in a multi-story home with access to stairs. - Engages in planned physical activities, including climbing stairs and walking. - Nutritional intake includes attempts to make healthier snack choices such as fruits, cheese sticks, and nuts while avoiding junk food. - Expressed interest in further nutrition and exercise information. - Recently diagnosed with Hepatitis C; no history of blood transfusions reported. Review of Systems - Metabolic/Endocrine: Reports experiencing episodes of low blood sugar. - Musculoskeletal: Reports leg pain. Physical Exam Appearance: Alert. Oriented X3. No acute distress. Head: Normal external exam. Normocephalic. Atraumatic. Eyes: Pupils are equal, round, and reactive to light. Extraocular movements intact. Conjunctiva and sclera normal. Eyelids normal. Ears: External auditory canal normal. Throat: Pharynx normal. Uvula midline. Moist mucous membranes. Neck: Normal inspection. Neck supple. Full range of motion. Back: Full range of motion noted. Skin: Skin warm and dry. Normal skin color. Normal skin turgor. No rashes/lesions/lacerations noted. Extremities: Extremities exhibit normal range of motion. Neuro: Oriented X 3. Results - Labs: Pending results to differentiate between Type 1 and Type 2 Diabetes. - Tests: Positive Hepatitis C test. Plan - Continue with insulin therapy emphasizing blood glucose monitoring. - Ensure prior authorization for diabetes supplies, including glucometer and insulin strips. Considering Dexacom. - Referral to infectious diseases for further evaluation and management of Hepatitis C. - Schedule follow-up in one month for reassessment of diabetes management and pending lab results. - Discuss dietary modifications and plans for increased physical activity including walking and stair exercises. Patient Instructions - Monitor blood glucose levels as per your insulin schedule. - Follow the dietary recommendations to avoid high sugar foods and include healthy snacks. - Engage in regular physical activity, including walking and using stairs within your home. - Follow up with infectious disease specialists as scheduled. - Return to clinic in one month for further evaluation and adjustment of treatment as needed. - Notify the clinic of any difficulties in obtaining prescribed medical supplies. Discussion Notes I discussed with the patient the importance of maintaining blood glucose within normal limits, and the appropriate management of insulin dosage relative to meal intake. I addressed the coverage issues with insulin supplies and advised monitor glucose levels regularly. The pending differentiation of diabetes type was noted, and I assured the patient that their treatment regimen would change minimally with the determination. We also discussed the management of his newly diagnosed Hepatitis C, including necessary referrals to infectious disease specialists for appropriate work-up and potential treatment. Additionally, I emphasized the importance of lifestyle modifications, including dietary changes and physical activity, for optimal diabetes and general health management. I ensured the patient understood the need for regular follow-ups and advised returning in a month for further evaluation. Patient was informed and verbally consented to the use of an ambient scribe for clinic note documentation during this visit.
== END 2024-08-05 11:07 | disposition home or self-care (01) ==
PROVIDERS: PCP Internal Medicine; Visit Provider Internal Medicine
DX: E11.9 Type 2 diabetes mellitus without complications (principal); E66.812 Obesity, class 2; Z68.38 Body mass index [BMI] 38.0-38.9, adult; B19.20 Unspecified viral hepatitis C without hepatic coma; R74.01 Elevation of levels of liver transaminase levels

== ENCOUNTER → 2024-08-05 10:06 | Outpatient (BNVA) | payer OTHER, SELFPAY | PROVIDERS: PCP Internal Medicine; Visit Provider Internal Medicine | DX: E11.9 Type 2 diabetes mellitus without complications (principal); B19.20 Unspecified viral hepatitis C without hepatic coma; R74.01 Elevation of levels of liver transaminase levels; E66.9 Obesity, unspecified | CPT/HCPCS: 99212 ==

== ENCOUNTER 2024-09-06 14:57 | Outpatient (REF) | payer OTHER, SELFPAY ==
[2024-09-07 04:28] LABS: Syphilis Screen Nonreactive (Nonreactive)
[2024-09-07 04:36] LABS: HIV AB/AG Nonreactive (Nonreactive); HIV Num 1 0.07 S/CO (0.00-0.99)
[2024-09-08 19:39] LABS: HCV Log PCR 5.59 Log IU/mL (NOT DETECTED); HepC Viral Load 388000 IU/mL (NOT DETECTED)
[2024-09-10 16:58] LABS: Hepatitis C Genotype 1a
[2024-09-13 10:58] LABS: FIB-ALT 244 U/L (9-46); FIB-Alpha-2-Macroglobulin 206 mg/dL (106-279); FIB-Apolipoprotein A1 155 mg/dL (94-176); FIB-GGT 120 U/L (3-90); FIB-Haptoglobin 119 mg/dL (43-212); FIB-Total Bilirubin 0.4 mg/dL (0.2-1.2); Liver Fibrosis Score 0.21; Liver Fibrosis Stage F0; Nec Inflam Act Grade A3; Nec Inflam Act Score 0.84; Reference ID 5293611
== END 2024-09-06 14:58 | disposition home or self-care (01) ==
LOC: HO.LAB 14:57
PROVIDERS: PCP Internal Medicine; Visit Provider Internal Medicine
DX: B19.20 Unspecified viral hepatitis C without hepatic coma (principal)
CPT/HCPCS: 36415; 81596; 86780; 87389; 87522; 87902; 99202

== ENCOUNTER 2024-09-06 14:57 | Outpatient (AMB) | payer OTHER, SELFPAY ==
--- NOTE | 2024-09-06 14:58 | MHC.OFFVIS ---
Vital Signs 09/06/24 14:58 09/06/24 15:06 Height 5 ft 11 in Weight 196 lb Pulse 117 H Pulse Source Pulse Oximeter Pulse Oximetry (%) 96 Oxygen Delivery Method Room Air Intake Visit Reasons: reff pati whitaker/ hep c Allergies Penicillins Allergy (Mild, Verified 09/06/24 15:14) Unknown HPI HPI reff pati whitaker/ hep c: Details: They have positive Hepatitis C antibody. They have no viralload yet. [facility] Medical History Hepatitis C Diabetes mellitus History of heroin use Bipolar 1 disorder Surgical History No pertinent past surgical history Family History Mother No problems noted. Father No problems noted. Other Mental health disorder Substance use disorder Social History Household Members: Caregiver Housing: Assisted Living Facility Alcohol intake: never Patient Tobacco Use Status: Former Tobacco user Tobacco use type: Cigarette Cigarettes Per Day: 10 e-Cigarette/Vaping Use: Currently Using Second Hand Smoke Exposure: Yes service: No Current occupational status: unemployed Cognitive needs: No Hearing needs: No Vision needs: No Review of Systems Const All systems reviewed & are unremarkable except as noted in HPI and below Physical Exam Vital Signs: Last Vital Signs Pulse 117 H 09/06/24 15:06 Pulse Ox 96 09/06/24 15:06 Oxygen Delivery Method Room Air 09/06/24 15:06 Const General: cooperative Orientation/consciousness: patient oriented x3 HEENT Head: Yes normal to inspection Face and sinus: Yes normal facial exam Mouth: Normal oral and palatal mucosa present Teeth and gingiva: dentition normal Eyes General: appearance normal, both eyes and all related structures Pupils: Equal, round and reactive pupils present Resp Effort & Inspection: normal respiratory effort Cardio Rate: regular rate Rhythm: regular rhythm GI Palpation (GI): Soft to palpation and nontender General: Yes no CVA tenderness Back/Spine/Pelvis Back: no CVA tenderness Skin General skin exam: no rashes or lesions noted Neuro General: patient oriented x3 and moves all extremities Cranial nerves: Yes Equal, round and reactive pupils present Extrem General: Yes normal to inspection Psych Appearance: grossly normal Assessment & Plan Assessment & Plan (1) Hepatitis C: Comment: they may have active Hepatitis C Code(s): B19.20 - Unspecified viral hepatitis C without hepatic coma Category: Medical Plan: Check Hepatitis C viral load Order Mavyret or Epclusa if needed. Orders: Orders Liver Fibrosis Pnl 09/06/24 B19.20 - Unspecified viral hepatitis C without hepatic coma Hepatitis C Viral Load 09/06/24 B19.20 - Unspecified viral hepatitis C without hepatic coma HIV Ab/Ag 09/06/24 B19.20 - Unspecified viral hepatitis C without hepatic coma Syphilis Screen 09/06/24 B19.20 - Unspecified viral hepatitis C without hepatic coma Hepatitis C Genotype 09/06/24 B19.20 - Unspecified viral hepatitis C without hepatic coma Coding Level of Care Code New Pt Level 3 (29448) Diagnoses Hepatitis C B19.20
[2024-09-06 15:06] VITALS: PULSE 117; O2SAT 96
== END 2024-09-06 16:01 | disposition home or self-care (01) ==
PROVIDERS: PCP Internal Medicine; Visit Provider Internal Medicine
DX: B19.20 Unspecified viral hepatitis C without hepatic coma (principal)
CPT/HCPCS: 99203

== ENCOUNTER 2024-12-23 13:14 | Outpatient (AMB) | payer OTHER, SELFPAY ==
--- NOTE | 2024-12-23 13:36 | MHC.PC.OV ---
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,cont (FreeStyle Aureliano 3 [place]) As directed buprenorphine-naloxone 8-2 mg (Suboxone) 1 film sublingual TID buspirone 20 mg PO TID cholecalciferol (vitamin D3) 25 mcg PO DAILY cyclobenzaprine 5 mg PO BEDTIME PRN diphenhydramine HCl (Benadryl) 25 mg PO Q4H PRN docusate sodium (Colace) 100 mg PO BID guaifenesin 200 - 400 mg PO Q4H PRN ibuprofen 600 mg PO Q6H PRN insulin glargine (Lantus Solostar U-100 Insulin) 60 units (0.6 mL) subcut BID insulin lispro (Humalog KwikPen (U-100) Insulin) Blood Sugar: <150 - 0 units 151-200 - 2 units 201-250 - 4 units 251-300 - 6 units 301-350 - 8 units >350 - 10 units insulin lispro (Humalog KwikPen (U-100) Insulin) 25 units (0.25 mL) subcut QIDACHS lancets (FreeStyle Lancets) Test four times a day or as directed. lidocaine-prilocaine 2.5-2.5 % 1 appl topical TID PRN loratadine 10 mg PO DAILY PRN magnesium hydroxide (Milk of Magnesia) 30 mL PO DAILY PRN melatonin 3 mg PO BEDTIME PRN metformin 850 mg PO BIDWM multivitamin 1 tab PO DAILY naloxone 4 mg/actuation (Narcan) 4 mg intranasal Q2M PRN olanzapine (Zyprexa) 20 mg PO BEDTIME pen needle, diabetic (BD Annita 2nd Gen Pen Needle) As directed QID polyethylene glycol 3350 17 grams PO DAILY PRN sennosides 17.2 mg PO BID PRN sofosbuvir-velpatasvir 400-100 mg (Epclusa) 1 tab PO DAILY 12 weeks topiramate 50 mg PO BEDTIME trazodone 50 mg PO BEDTIME PRN Tobacco use date assessed: 12/23/24 Dental Screening Dental Screen Date: 12/23/24 Did you have a dental visit in the last 12 months?: No Did you have a dental problem in the last 6 months where you did not have access to dental care?: No Was dental information given to patient?: Patient has dentist HPI follow up HPI Details The patient is a 29-year-old born male transitioning to female presenting with diabetes mellitus follow-up. Navid has made notable progress as his A1c level reduced from 11.8 to 7.3. The patient reported experiencing adverse effects such as diarrhea linked to metformin, and this medication was discontinued under medical advice. Navid current regime includes insulin, with which he reports no issues. Additionally, the patient expressed concern about his weight, with a BMI of 41, and sought assistance for weight management options, having attempted lifestyle modifications such as eliminating soda. Navid also notes anxiety-related symptoms, including elevated heart rate and high blood pressure, although navid attributes it primarily to anxiety and not to navid diabetic medication. Navid expressed interest in monitoring blood pressure at home as recent evaluations have shown elevated readings, potentially secondary to anxiety. Instructions were provided to record blood pressure measurements consistently and report back in two weeks. There was also discussion regarding updating the patient's medication list, excluding metformin and including a new injection. Previous attempts to manage anxiety with Atarax were ineffective, requiring further assessment of anxiety management in the future. Social History - Reports quitting soda to aid in weight management. - BMI indicated at 41, indicating obesity. - Anxiety noted, which the patient associates with current cardiovascular findings. [facility] Medical History (Updated 12/23/24 @ 17:41 by Danielle Woods PA-C) Anxiety Elevated blood pressure reading in office with diagnosis of hypertension Tachycardia Body mass index (BMI) of 40.1 to 44.9 in adult Hepatitis C Diabetes mellitus History of heroin use Bipolar 1 disorder Surgical History No pertinent past surgical history Family History Mother No problems noted. Father No problems noted. Other Mental health disorder Substance use disorder Social History Household Members: Caregiver Housing: Assisted Living Facility Alcohol intake: never Patient Tobacco Use Status: Current someday Tobacco user Tobacco use type: Cigarette Cigarettes Per Day: 10 e-Cigarette/Vaping Use: Currently Using Second Hand Smoke Exposure: Yes service: No Current occupational status: unemployed Cognitive needs: No Hearing needs: No Vision needs: No Questionnaire PHQ-9 Over the last 2 weeks, how often have you been bothered by any of the following problems? 1. Little interest or pleasure in doing things: several days 2. Feeling down, depressed, or hopeless: not at all 3. Trouble falling or staying asleep, or sleeping too much: several days 4. Feeling tired or having little energy: several days 5. Poor appetite or overeating: more than half the days 6. Feeling bad about yourself - or that you are a failure or have let yourself or your family down: several days 7. Trouble concentrating on things, such as reading the newspaper or watching television: several days 8. Moving or speaking so slowly that other people could have noticed. Or the opposite - being so fidgety or restless that you have been moving around a lot more than usual: not at all 9. Thoughts that you would be better off or of hurting yourself in some way: not at all Total score: 7 Depression Screening Interpretation: Positive Depression Screening Follow-up: Existing condition and In treatment Depression Screening Done: Yes 84768 - PHQ-9 Billing: Yes Source: Developed by Drs. Conor Oconnor, Ana Garces, Wayne Rodriguez and colleagues, with an educational manuel from [employer]. Thrive Questionnaire Date Thrive assessed: 12/23/24 I am a: Patient What is your living situation today?: I have a steady place to live Within the past 12 months, did the food you bought not last and you didn't have the money to get more?: I choose not to answer this question Within the past 12 months, did you worry whether your food would run out before you got money to buy more?: I choose not to answer this question Do you have trouble paying for medicines?: I choose not to answer this question Do you have trouble getting transportation to medical appointments?: I choose not to answer this question Do you have trouble paying your heating and electricity bill?: I choose not to answer this question Do you have trouble taking care of your child, family member or friend?: I choose not to answer this question Do you have trouble with day-to-day activities such as bathing, preparing meals, shopping, managing finances, etc.?: I choose not to answer this question Are you currently unemployed and looking for a job?: I choose not to answer this question Are you interested in more education?: I choose not to answer this question Please select the resources that you would like help with: None Currently or been in a relationship where the following occur: I choose not to answer THRIVE Score: 0 AUDIT C Alcohol Use Questionnaire (AUDIT-C) 1. How often do you have a drink containing alcohol?: Never Total Score: 0 Score Reviewed/Action Taken: No BALBINA-7 AMB Questionnaire BALBINA-7 Date BALBINA - 7 assessed: 12/23/24 Feeling nervous, anxious, or on edge: 1 = Several days Not being able to stop or control worryin = Several days Worrying too much about different things: 1 = Several days Trouble relaxin = Several days Being so restless that it is hard to sit still: 1 = Several days Becoming easily annoyed or irritable: 1 = Several days Feeling afraid as if something awful might happen: 1 = Several days Total BALBINA-7 score (0-4 normal; 5-9 mild; 10-14 moderate; 15-21 severe): 7 Source: Developed by Drs. Conor Oconnor, Ana Garces, Wayne Rodriguez and colleagues, with an educational manuel from [employer]. BALBINA-7 Assessment Billing BALBINA-7 Assessment Tool: BALBINA-7 Assessment 32155 Review of Systems Const Details: - Cardiovascular: Reports concerns of elevated blood pressure readings. - Psychiatric: Reports high anxiety levels impacting blood pressure measurements; prior use of Atarax without efficacy. - Cardiovascular: Reports increased heart rate. - Endocrine: Denies issues with current insulin therapy. - Gastrointestinal: Reports previous diarrhea with metformin use. - Psychiatric: Reports anxiety. Physical exam (Primary Care) Vital Signs: Last Vital Signs Pulse 118 H 12/23/24 13:39 BP 160/98 H 12/23/24 13:39 Pulse Ox 95 12/23/24 13:39 Oxygen Delivery Method Room Air 12/23/24 13:39 Care Plan Goal for BP management: <130/90 patient to monitor his blood pressure for the next 2 weeks and return in 2-4 weeks with blood pressure diary to assess if they needs to be started on blood pressure medication BMI result Body Mass Index 41.6 BMI Assessment/Plan discussion: High BMI High, discussed plan: lifestyle, weight reduction, dietary, physical activity and alcohol moderation Tobacco/Smoking Status: Tobacco use Status Tobacco use date assessed 12/23/24 12/23/24 13:43 Patient Tobacco Use Status Current someday Tobacco 12/23/24 13:43 Tobacco use type Cigarette 12/23/24 13:37 e-Cigarette/Vaping Use Currently Using 12/23/24 13:37 PHQ-9: PHQ-9 Score PHQ-9: Total score 7 12/23/24 14:04 Depression Screening Interpretation: Positive Depression Screening Follow-up: Existing condition and In treatment Thrive Assessment: Date of Thrive Assessment Date Thrive assessed 12/23/24 12/23/24 13:43 Currently or been in a relationship where the following occur: I choose not to answer Const Other: Appearance: Alert. Oriented X3. No acute distress. Head: Normal external exam. Normocephalic. Atraumatic. Eyes: Pupils are equal, round, and reactive to light. Extraocular movements intact. Conjunctiva and sclera normal. Eyelids normal. Throat: Pharynx normal. Uvula midline. Moist mucous membranes. Neck: Normal inspection. Neck supple. Full range of motion. No adenopathy. Thyroid Normal. No meningeal signs. No neck mass noted. Cardiovascular: Heart rate fast at 118 bpm. Heart sound normal, but possible skipped beat noted. No murmurs noted. Pulses normal throughout. Blood pressure elevated at 160/100, but may be influenced by anxiety. Respiratory: No respiratory distress. Painless inspiration. Breath sounds normal. No wheezes/rales/rhonchi noted. Chest nontender. No accessory muscle usage noted or decreased air movement noted. Abdomen: Soft and nontender. Back: Full range of motion noted. Skin: Skin warm and dry. Normal skin color. Normal skin turgor. No rashes/lesions/lacerations noted. Extremities: No lower extremity edema. Extremities exhibit normal range of motion. Extremities nontender. Neuro: Oriented X 3. No motor deficit. No sensory deficit. Reflexes normal. Office Procedures EKG Details: EKG sinus tachycardia with a ventricular rate of 111. Normal IA interval, normal QRS interval, normal QTC interval. No acute ischemic change are noted. Reviewed by Dr. Miller who agreed with the reading. [id number], Complete Results AMB Hemoglobin A1c AMB Hemoglobin A1c 7.3 % Last Edit by SIENNA Royal on 12/23/24 13:46 Results Reviewed Results Reviewed: Laboratory Last Values Hgb A1c (Clinic) 7.3 % (4.0-6.0) H 12/23/24 13:36 - Tests: Electrocardiogram (EKG) interpreted as fast but normal. Coding Level of Care Code Est Pt Level 4 (08490) Complex EM visit Add On G2211 Diagnoses Diabetes mellitus E11.9 Body mass index (BMI) of 40.1 to 44.9 in adult Z68.41 Tachycardia R00.0 Elevated blood pressure reading in office with diagnosis of hypertension I10 Anxiety F41.9 CPT Codes EKG - CPT: 70554-Dfaqnhzqeouswrlut, Complete ([id number]) Additional Codes PHQ-9 - 24317 - PHQ-9 Billing: Yes ([id number]) BALBINA-7 Assessment Billing - BALBINA-7 Assessment Tool: BALBINA-7 Assessment 73537 ([id number]) Time Spent (min) 45 Assessment & Plan Assessment & Plan (1) Diabetes mellitus: Code(s): E11.9 - Type 2 diabetes mellitus without complications Category: Medical Plan: Patient's A1c has improved significantly from 11.8-7.3. A1c level goal less than 7.0. Metformin discontinued due to diarrhea; insulin therapy continues. Consideration for semaglutide pending insurance. Condition is chronic and stable will continue to monitor. (2) Body mass index (BMI) of 40.1 to 44.9 in adult: Code(s): Z68.41 - Body mass index [BMI] 40.0-44.9, adult Category: Medical Plan: BMI noted, lifestyle modifications advice provided, potential semaglutide pending approval. Condition is chronic and stable will continue to monitor. (3) Tachycardia: Code(s): R00.0 - Tachycardia, unspecified Category: Medical Plan: Sinus tachycardia. No acute ischemic changes on EKG. Condition is chronic and stable will continue to monitor. (4) Elevated blood pressure reading in office with diagnosis of hypertension: Code(s): I10 - Essential (primary) hypertension Category: Medical Plan: The patient will record home blood pressure measurements and follow-up in two weeks to assess consistency or improvement in readings, taking into consideration anxiety's potential contributing role. Blood pressure high; home monitoring suggested. Anxiety may contribute. Patient to return in 2-4 weeks with blood pressure diary and at that time we will consider a patient needs to be started on blood pressure medication. Condition is stable continue to monitor (5) Anxiety: Code(s): F41.9 - Anxiety disorder, unspecified Category: Medical Plan: Anxiety impacting heart rate; monitoring and reassurance given. Condition is chronic and stable continue to monitor. Plan Plan Patient was informed and verbally consented to the use of an ambient scribe for clinic note documentation during this visit. 1. Diabetes Mellitus Patient's A1c has improved significantly. Metformin discontinued due to diarrhea; insulin therapy continues. Consideration for semaglutide pending insurance. 2. Essential Hypertension The patient will record home blood pressure measurements and follow-up in two weeks to assess consistency or improvement in readings, taking into consideration anxiety's potential contributing role. Blood pressure high; home monitoring suggested. Anxiety may contribute. 3. Obesity BMI noted, lifestyle modifications advice provided, potential semaglutide pending approval. 4. Anxiety Anxiety impacting heart rate; monitoring and reassurance given. With Atarax found ineffective, future treatments for anxiety will be considered, as it may impact blood pressure management. During this visit, we discussed the significant role anxiety may play in the patient's blood pressure readings, acknowledging the ineffectiveness of Atarax for this individual. Home blood pressure monitoring was agreed upon to gather regular readings, which will inform our management strategy in the follow-up visit scheduled within two to four weeks. Updating the medication list was also a point of discussion, ensuring it reflects the patient's current treatments without metformin and considering the addition of a new injection as necessary. I discussed with the patient the current improvement in his diabetic condition, noting the significant drop in A1c levels. We reviewed his experience with metformin, agreeing to its removal from his treatment due to unpleasant side effects. Accordingly, the focus shifted to maintaining his insulin regimen. We explored potential weight loss avenues and the benefits of semaglutide injection, contingent upon insurance coverage. Additionally, I expressed the need for ongoing monitoring of his blood pressure and heart rate, highlighting the probable influence of anxiety on these readings. I advised on continued lifestyle improvements and potential pharmacological aids for weight management. Orders: Orders AMB EKG-In Office Today R00.0 - Tachycardia, unspecified AMB Hemoglobin A1c Today E11.9 - Type 2 diabetes mellitus without complications Medications: New semaglutide for 4 weeks 0.25 mg (0.187 mL) subcut QWEEK 1.5 mL 0RF E11.9 - Type 2 diabetes mellitus without complications, E66.9 - Obesity, unspecified, Z68.41 - Body mass index [BMI] 40.0-44.9, adult Discontinued metformin Discontinued Reason: Doctor's Order 850 mg PO BIDWM 60 tabs 0RF Patient Instructions: - Record blood pressure at home at least once a day or five times a week. - Follow up in two to four weeks with documented blood pressure readings. - Discuss with healthcare provider about effective anxiety management in future visits. - Review and update medication list based on current health needs. - Monitor blood glucose levels regularly and continue insulin therapy. - Discontinue metformin as advised. - Consider home blood pressure monitoring. - Await insurance verdict on semaglutide for weight management. - Continue lifestyle modifications, including soda cessation. - Observe potential anxiety triggers and manage symptoms accordingly. - Follow-up appointments and EKG as discussed.
[2024-12-23 13:39] VITALS: BP 160/98; PULSE 118; O2SAT 95; BMI 41.6
== END 2024-12-23 14:29 | disposition home or self-care (01) ==
LOC: HO.HMCH 13:15
PROVIDERS: PCP Internal Medicine; Visit Provider Physician Assistant Medical
DX: E11.9 Type 2 diabetes mellitus without complications (principal); Z68.41 Body mass index [BMI] 40.0-44.9, adult; R00.0 Tachycardia, unspecified; I10 Essential (primary) hypertension; F41.9 Anxiety disorder, unspecified

== ENCOUNTER → 2024-12-23 13:14 | Outpatient (BNVA) | payer OTHER, SELFPAY | PROVIDERS: PCP Internal Medicine; Visit Provider Physician Assistant Medical | DX: E11.9 Type 2 diabetes mellitus without complications (principal); F41.9 Anxiety disorder, unspecified; I10 Essential (primary) hypertension; R00.0 Tachycardia, unspecified; E66.9 Obesity, unspecified; Z68.41 Body mass index [BMI] 40.0-44.9, adult | CPT/HCPCS: 83036; 93005; 96127; 99212 ==

== ENCOUNTER 2024-12-29 07:35 | Outpatient (REF) | payer OTHER, SELFPAY ==
[2024-12-31 13:23] LABS: HCV Log PCR <1.18 NOT DETECTED Log IU/mL (NOT DETECTED); HepC Viral Load <15 NOT DETECTED IU/mL (NOT DETECTED)
== END 2024-12-29 07:36 | disposition home or self-care (01) ==
LOC: HO.LAB 07:35
PROVIDERS: PCP Internal Medicine; Visit Provider Internal Medicine
DX: B19.20 Unspecified viral hepatitis C without hepatic coma (principal)
CPT/HCPCS: 36415; 87522

== ENCOUNTER 2025-01-21 14:10 | Outpatient (AMB) | payer OTHER, SELFPAY ==
--- NOTE | 2025-01-21 14:10 | MHC.AM.SUB ---
Vital Signs 01/21/25 14:15 BP 160/98 H Blood Pressure Location Rt brachial Position Sitting Pulse 115 H Pulse Source Pulse Oximeter Pulse Oximetry (%) 97 Oxygen Delivery Method Room Air Intake Visit Reasons: hep c tx follow up labs Intake Note: Patient presents for hep C Tx follow up Allergies metformin Allergy (Intermediate, Verified 12/29/24 11:38) Diarrhea Penicillins Allergy (Mild, Verified 12/29/24 11:38) Unknown HPI Comments Details: They finished Epclusa for three months and SVR is undetectable on 12/29 They have no problems Review of Systems Const All systems reviewed & are unremarkable except as noted in HPI and below Physical Exam Vital Signs: Last Vital Signs Pulse 115 H 01/21/25 14:15 BP 160/98 H 01/21/25 14:15 Pulse Ox 97 01/21/25 14:15 Oxygen Delivery Method Room Air 01/21/25 14:15 Const General: cooperative [facility] Medical History Anxiety Elevated blood pressure reading in office with diagnosis of hypertension Tachycardia Body mass index (BMI) of 40.1 to 44.9 in adult Hepatitis C Diabetes mellitus History of heroin use Bipolar 1 disorder Surgical History No pertinent past surgical history Family History Mother No problems noted. Father No problems noted. Other Mental health disorder Substance use disorder Social History Household Members: Caregiver Housing: Assisted Living Facility Alcohol intake: never Patient Tobacco Use Status: Current someday Tobacco user Tobacco use type: Cigarette Cigarettes Per Day: 10 e-Cigarette/Vaping Use: Currently Using Second Hand Smoke Exposure: Yes service: No Current occupational status: unemployed Cognitive needs: No Hearing needs: No Vision needs: No Assessment & Plan Assessment & Plan (1) Hepatitis C antibody positive in blood: Comment: They achieved SVR. Code(s): R76.8 - Other specified abnormal immunological findings in serum Category: Medical Plan: No treatment needed. If risk factors continue,check annual hepatitis C viral load.
[2025-01-21 14:15] VITALS: BP 160/98; PULSE 115; O2SAT 97
== END 2025-01-21 14:50 | disposition home or self-care (01) ==
LOC: HO.HID 14:10
PROVIDERS: PCP Internal Medicine; Visit Provider Internal Medicine
DX: R76.8 Other specified abnormal immunological findings in serum (principal)
CPT/HCPCS: 99213

== ENCOUNTER → 2025-01-21 14:10 | Outpatient (BNVA) | payer OTHER, SELFPAY | PROVIDERS: PCP Internal Medicine; Visit Provider Internal Medicine | DX: R76.8 Other specified abnormal immunological findings in serum (principal) | CPT/HCPCS: 99212 ==

== ENCOUNTER 2025-03-10 09:13 | Outpatient (AMB) | payer OTHER, SELFPAY ==
--- NOTE | 2025-03-10 09:19 | A.OFFPC_ITS ---
Vital Signs 03/10/25 09:24 Height 5 ft 11 in Weight 293 lb 2 oz BMI 40.9 BP 140/72 H Blood Pressure Location Lt brachial Position Sitting Pulse 100 Pulse Source Pulse Oximeter Temp 97.3 F Temp Source Temporal Artery Scan Pulse Oximetry (%) 95 Oxygen Delivery Method Room Air Intake Visit Reasons: Reschedule 3 week FU Intake Note: Patient is here to follow up on Anxiety, DM, Obesity Clinical Audiologist Required: No Senior Research Analyst: Not Required per policy Accompanied by: Self / Same As Patient Allergies metformin Allergy (Intermediate, Verified 03/10/25 09:53) Diarrhea Penicillins Allergy (Mild, Verified 03/10/25 09:53) Unknown Medication List - Last Reconciled 03/10/25 by Jimmy Heath MD alcohol swabs 1 pad topical QIDACHS aripiprazole 30 mg PO DAILY blood sugar diagnostic (FreeStyle Lite Strips) Test four times a day or as directed. 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-glucose,general medical practitioner,cont (FreeStyle Aureliano 3 Mobile) As directed buprenorphine-naloxone 8-2 mg (Suboxone) 1 film sublingual TID buspirone 20 mg PO TID cholecalciferol (vitamin D3) 25 mcg PO DAILY cyclobenzaprine 5 mg PO BEDTIME PRN diphenhydramine HCl (Benadryl) 25 mg PO Q4H PRN docusate sodium (Colace) 100 mg PO BID guaifenesin 200 - 400 mg PO Q4H PRN ibuprofen 600 mg PO Q6H PRN insulin glargine (Lantus Solostar U-100 Insulin) 60 units (0.6 mL) subcut BID insulin lispro (Humalog KwikPen (U-100) Insulin) Blood Sugar: <150 - 0 units 151-200 - 2 units 201-250 - 4 units 251-300 - 6 units 301-350 - 8 units >350 - 10 units insulin lispro (Humalog KwikPen (U-100) Insulin) 25 units (0.25 mL) subcut QIDACHS lancets (FreeStyle Lancets) Test four times a day or as directed. lidocaine-prilocaine 2.5-2.5 % 1 appl topical TID PRN loratadine 10 mg PO DAILY PRN magnesium hydroxide (Milk of Magnesia) 30 mL PO DAILY PRN melatonin 3 mg PO BEDTIME PRN multivitamin 1 tab PO DAILY naloxone 4 mg/actuation (Narcan) 4 mg intranasal Q2M PRN olanzapine (Zyprexa) 20 mg PO BEDTIME pen needle, diabetic As directed QID polyethylene glycol 3350 17 grams PO DAILY PRN semaglutide 0.25 mg (0.187 mL) subcut QWEEK sennosides 17.2 mg PO BID PRN sofosbuvir-velpatasvir 400-100 mg (Epclusa) 1 tab PO DAILY 12 weeks topiramate 50 mg PO BEDTIME trazodone 50 mg PO BEDTIME PRN Tobacco use date assessed: 03/10/25 Dental Screening Dental Screen Date: 12/23/24 HPI Reschedule 3 week FU HPI Details 29-year-old male presents to the office to discuss his chronic medical conditions. Patient continues to live in a senior care, he is administered medications, he is allowed to cook on his own and is currently looking for a part-time job. His bipolar disorder is currently stable on medications. He is compliant with medications and reporting no side effects. Able to function. Does not drive. PFSH Medical History Tobacco use disorder Bipolar 1 disorder Anxiety Elevated blood pressure reading in office with diagnosis of hypertension Tachycardia Body mass index (BMI) of 40.1 to 44.9 in adult Hepatitis C Diabetes mellitus History of heroin use Surgical History No pertinent past surgical history Family History Mother No problems noted. Father No problems noted. Other Mental health disorder Substance use disorder Social History Household Members: Caregiver Housing: Assisted Living Facility Alcohol intake: never Patient Tobacco Use Status: Current someday Tobacco user Tobacco use type: Cigarette Cigarette Packs Per Day: 0.25 Cigarettes Per Day: 4 e-Cigarette/Vaping Use: Currently Using Second Hand Smoke Exposure: Yes service: No Current occupational status: unemployed Cognitive needs: No Hearing needs: No Vision needs: No Questionnaire Thrive Questionnaire Date Thrive assessed: 12/23/24 I am a: Patient What is your living situation today?: I have a steady place to live Within the past 12 months, did the food you bought not last and you didn't have the money to get more?: I choose not to answer this question Within the past 12 months, did you worry whether your food would run out before you got money to buy more?: I choose not to answer this question Do you have trouble paying for medicines?: I choose not to answer this question Do you have trouble getting transportation to medical appointments?: I choose not to answer this question Do you have trouble paying your heating and electricity bill?: I choose not to answer this question Do you have trouble taking care of your child, family member or friend?: I choose not to answer this question Do you have trouble with day-to-day activities such as bathing, preparing meals, shopping, managing finances, etc.?: I choose not to answer this question Are you currently unemployed and looking for a job?: I choose not to answer this question Are you interested in more education?: I choose not to answer this question Please select the resources that you would like help with: None Currently or been in a relationship where the following occur: I choose not to answer THRIVE Score: 0 BALBINA-7 AMB Questionnaire BALBINA-7 Date BALBINA - 7 assessed: 03/10/25 Feeling nervous, anxious, or on edge: 2 = More than half the days Not being able to stop or control worryin = Several days Worrying too much about different things: 1 = Several days Trouble relaxin = Several days Being so restless that it is hard to sit still: 1 = Several days Becoming easily annoyed or irritable: 0 = Not at all Feeling afraid as if something awful might happen: 1 = Several days Total BALBINA-7 score (0-4 normal; 5-9 mild; 10-14 moderate; 15-21 severe): 7 Source: Developed by Drs. Conor Oconnor, Ana Garces, Wayne Rodriguez and colleagues, with an educational manuel from [employer]. Physical exam (Primary Care) Vital Signs: Last Vital Signs Temp 97.3 F 03/10/25 09:24 Pulse 100 03/10/25 09:24 BP 140/72 H 03/10/25 09:24 Pulse Ox 95 03/10/25 09:24 Oxygen Delivery Method Room Air 03/10/25 09:24 Care Plan Goal for BP management: Blood pressure is stable. BMI result Body Mass Index 40.9 BMI Assessment/Plan discussion: High (1 lb per week weight loss suggested.) BMI High, discussed plan: lifestyle, weight reduction and dietary Tobacco/Smoking Status: Tobacco use Status Tobacco use date assessed 03/10/25 03/10/25 09:27 Patient Tobacco Use Status Current someday Tobacco 03/10/25 09:30 Tobacco use type Cigarette 03/10/25 09:30 e-Cigarette/Vaping Use Currently Using 03/10/25 09:30 Are you ready to quit: No Thrive Assessment: Date of Thrive Assessment Date Thrive assessed 12/23/24 03/10/25 09:20 Currently or been in a relationship where the following occur: I choose not to answer Const General: cooperative and healthy appearing Nutritional Appearance: well nourished Orientation/consciousness: patient oriented x3 Limitations: no limitations HENMT Head: Yes normal to inspection Eyes General: appearance normal, both eyes and all related structures Neck Neck: Yes normal visual inspection Chest Chest palpation & inspection: normal palpation of entire chest wall Resp Effort & Inspection: normal respiratory effort Neuro General: patient oriented x3 Coding Level of Care Code Est Pt Level 4 (29773) Complex EM visit Add On G2211 Diagnoses Bipolar 1 disorder F31.9 Diabetes mellitus E11.9 Body mass index (BMI) of 40.1 to 44.9 in adult Z68.41 Tobacco use disorder F17.200 Assessment & Plan Assessment & Plan (1) Bipolar 1 disorder: Code(s): F31.9 - Bipolar disorder, unspecified Category: Medical Plan: Patient appears stable. Continue medications at same dosage. (2) Diabetes mellitus: Code(s): E11.9 - Type 2 diabetes mellitus without complications Category: Medical Plan: A1c is in range. Continue insulin at the same dosage. Blood work has been ordered. (3) Body mass index (BMI) of 40.1 to 44.9 in adult: Code(s): Z68.41 - Body mass index [BMI] 40.0-44.9, adult Category: Medical Plan: Counseling on the importance of diet and exercise done. (4) Tobacco use disorder: Code(s): F17.200 - Nicotine dependence, unspecified, uncomplicated Category: Medical Plan: Patient was urged to quit smoking. Orders: Orders Basic Metabolic Panel Today E11.9 - Type 2 diabetes mellitus without complications, F31.9 - Bipolar disorder, unspecified, Z68.41 - Body mass index [BMI] 40.0-44.9, adult Complete Blood Count no Diff Today E11.9 - Type 2 diabetes mellitus without complications, F31.9 - Bipolar disorder, unspecified, Z68.41 - Body mass index [BMI] 40.0-44.9, adult Lipid Panel Today E11.9 - Type 2 diabetes mellitus without complications, F31.9 - Bipolar disorder, unspecified, Z68.41 - Body mass index [BMI] 40.0-44.9, adult Thyroid Stimulating Hormone Today E11.9 - Type 2 diabetes mellitus without complications, F31.9 - Bipolar disorder, unspecified, Z68.41 - Body mass index [BMI] 40.0-44.9, adult UA and rflx microscopic Today E11.9 - Type 2 diabetes mellitus without complications, F31.9 - Bipolar disorder, unspecified, Z68.41 - Body mass index [BMI] 40.0-44.9, adult Liver Panel Today E11.9 - Type 2 diabetes mellitus without complications, F31.9 - Bipolar disorder, unspecified, Z68.41 - Body mass index [BMI] 40.0-44.9, adult
[2025-03-10 09:24] VITALS: BP 140/72; PULSE 100; TEMP 36.3; O2SAT 95; BMI 40.9
== END 2025-03-10 09:48 | disposition home or self-care (01) ==
LOC: HO.HMCH 09:14
PROVIDERS: PCP Internal Medicine; Visit Provider Internal Medicine
DX: F31.9 Bipolar disorder, unspecified (principal); E11.9 Type 2 diabetes mellitus without complications; Z68.41 Body mass index [BMI] 40.0-44.9, adult; F17.200 Nicotine dependence, unspecified, uncomplicated

== ENCOUNTER → 2025-03-10 09:13 | Outpatient (BNVA) | payer OTHER, SELFPAY | PROVIDERS: PCP Internal Medicine; Visit Provider Internal Medicine | DX: E11.9 Type 2 diabetes mellitus without complications (principal); F41.9 Anxiety disorder, unspecified; E66.9 Obesity, unspecified; F31.9 Bipolar disorder, unspecified; F17.210 Nicotine dependence, cigarettes, uncomplicated; Z68.41 Body mass index [BMI] 40.0-44.9, adult | CPT/HCPCS: 99212 ==

== ENCOUNTER 2025-03-27 09:08 | Emergency (ER) | payer OTHER, SELFPAY ==
[2025-03-27 09:17] VITALS: BP 181/96; PULSE 110; RESP 19; TEMP 36.6; O2SAT 98; BMI 37.7
--- NOTE | 2025-03-27 09:51 | ED_ITS ---
HPI - General Adult General Chief complaint: General Medical Stated complaint: suboxan prescription needed, No PCP(goes by Cynthia) Time Seen by Provider: 03/27/25 09:51 Source: patient, RN notes reviewed and old records reviewed Mode of arrival: ambulatory Limitations: no limitations History of Present Illness ED Provider: Tamir HPI narrative: Patient is a 29-year-old presenting to the emergency department requesting prescription for Suboxone. States was recently discharged from program and does not see new prescriber until 03/29. Denies any withdrawal symptoms, states took last film last night. Currently on 1 film TID. MD complaint: medication refill Related Data Home Medications ?Medication ?Instructions ?Recorded ?Confirmed buprenorphine 8 mg-naloxone 2 mg 1 film sublingual TID 02/20/23 03/10/25 sublingual film (Suboxone) diphenhydramine HCl 25 mg capsule 25 mg PO Q4H PRN All ergy Symptoms 02/20/23 03/10/25 (Benadryl) docusate sodium 100 mg capsule 100 mg PO BID 02/20/23 03/10/25 (Colace) ibuprofen 600 mg tablet 600 mg PO Q6H PRN PAIN/FEVER 02/20/23 03/10/25 lidocaine-prilocaine 2.5 %-2.5 % 1 appl topical TID MO N PRIOR TO 02/20/23 03/10/25 topical cream ELECTOLYSIS loratadine 10 mg tablet 10 mg PO DAILY PRN Allergy S ymptoms 02/20/23 03/10/25 melatonin 3 mg capsule 3 mg PO BEDTIME PRN Sleep 03/10/25 multivitamin 1 tab PO DAILY 02/20/2302/22 naloxone 4 mg/actuation nasal 4 mg intranasal Q2M PRN OUD 02/20/23 03/10/25 spray (Narcan) olanzapine 20 mg tablet (Zyprexa) 20 mg PO BEDTIME 03/10/25 sennosides 17.2 mg tablet 17.2 mg PO BID PRN Constipat ion 02/20/23 03/10/25 trazodone 50 mg tablet 50 mg PO BEDTIME PRN Sleep 0 02/20/23 03/10/25 aripiprazole 30 mg tablet 30 mg PO DAILY 07/22/2402/22 buspirone 10 mg tablet 20 mg PO TID 07/22/24 guaifenesin 200 mg/5 mL oral liquid 200 - 400 mg PO Q4 H PRN 07/22/24 03/10/25 COUGH/CONGESTION magnesium hydroxide 400 mg/5 mL 30 ml PO DAILY PRN Con stipation 07/22/24 03/10/25 oral suspension (Milk of Magnesia) polyethylene glycol 3350 17 gram 17 g PO DAILY PRN Con stipation 07/22/24 03/10/25 oral powder packet topiramate 50 mg tablet 50 mg PO BEDTIME 07/22/24 Previous Rx's ?Medication ?Instructions ?Recorded cyclobenzaprine 5 mg tablet 5 mg PO BEDTIME PRN muscle spasm 08/07/23 #14 tabs cholecalciferol (vitamin D3) 25 25 mcg PO DAILY #90 ta bs 11/08/23 mcg (1,000 unit) tablet blood-glucose meter (FreeStyle #1 ea 07/26/24 Lite Meter kit) blood-glucose,ampoule inspector,cont #1 ea 08/19/24 (FreeStyle Aureliano 3 [place]) insulin lispro 100 unit/mL 0 sliding scale dose subcut 09/02/24 subcutaneous pen (Humalog KwikPen QIDACHS #15 mL (U-100) Insulin) sofosbuvir 400 mg-velpatasvir 100 1 tab PO DAILY 12 we eks #84 tabs 09/22/24 mg tablet (Epclusa) blood sugar diagnostic (FreeStyle #100 ea 09/27/24 Lite Strips) lancets 28 gauge (FreeStyle #100 ea 11/12/24 Lancets) insulin lispro 100 unit/mL 25 unit (0.25 mL) subcut QI DACHS 12/03/24 subcutaneous pen (Humalog KwikPen #15 mL (U-100) Insulin) semaglutide 0.25 mg or 0.5 mg (2 0.25 mg (0.187 mL) carr bcut QWEEK 12/23/24 mg/1.5 mL) subcutaneous pen #1.5 mL injector pen needle, diabetic 32 gauge x #100 ea 02/21/25 blood-glucose sensor (FreeStyle #2 ea 03/01/25 Aureliano 3 Plus Sensor device) insulin glargine 100 unit/mL (3 60 unit (0.6 mL) subcu t BID #15 mL 03/09/25 mL) subcutaneous pen (Lantus Solostar U-100 Insulin) alcohol swabs 1 pad topical QIDACHS #100 e a 03/16/25 buprenorphine 8 mg-naloxone 2 mg 1 film buccal TID 7 d ays #30 ea 03/27/25 sublingual film (Suboxone) Allergies Allergy/AdvReac Type Severity Reaction Status Date / Time metformin Allergy Intermediate Diarrhea Verified 03/27/25 09:19 Penicillins Allergy Mild Unknown Verified 03/27/25 09:19 Review of Systems Review of Systems: As per hPI Yes all other systems are reviewed and are negative Constitutional: Constitutional: Reports as per HPI PMFSH Past Medical History Medical History Tobacco use disorder Bipolar 1 disorder Anxiety Elevated blood pressure reading in office with diagnosis of hypertension Tachycardia Body mass index (BMI) of 40.1 to 44.9 in adult Hepatitis C Diabetes mellitus History of heroin use Surgical History No pertinent past surgical history Family History Family History Mother No problems noted. Father No problems noted. Other Mental health disorder Substance use disorder Social History Social History Household Members: Caregiver Housing: Assisted Living Facility Alcohol intake: never Patient Tobacco Use Status: Current someday Tobacco user Tobacco use type: Cigarette Cigarette Packs Per Day: 0.25 Cigarettes Per Day: 4 e-Cigarette/Vaping Use: Currently Using Second Hand Smoke Exposure: Yes Advance Directives: No Advance Directives Information Provided: No Do you have a plan to hurt others: No Plan service: No Current occupational status: unemployed Cognitive needs: No Hearing needs: No Vision needs: No Physical Exam ED Vital Signs: Vital Signs - 24 hr 03/27/25 09:17 Temperature 98 F Pulse Rate 110 H Respiratory Rate 19 Blood Pressure 181/96 H Pulse Oximetry 98 Oxygen Delivery Method Room Air BMI result Body Mass Index 37.7 Vital signs have been reviewed and appear to be correct. Blood pressure elevated. Heart rate slightly tachycardic. Respiratory rate normal. Temperature normal. Oxygen saturation normal. Const General: cooperative, healthy appearing and no acute distress Orientation/consciousness: oriented to person, oriented to place, oriented to time and patient oriented x3 Limitations: no limitations HENMT Head: Yes normocephalic and Yes atraumatic Ears: external ears normal General nose exam: Normal external nose present Face and sinus: Yes face symmetric Mouth: oropharynx normal and moist mucous membranes Throat: Yes uvula midline Eyes Pupils: Equal, round and reactive pupils present Neck Neck: Yes normal visual inspection and Yes supple Resp Effort & Inspection: normal respiratory effort and able to speak in complete sentences Auscultation: clear to auscultation bilaterally Cardio Rate: regular rate Rhythm: regular rhythm Heart sounds: S1 normal heart sound present and S2 normal heart sound present GI Palpation (GI): Soft to palpation and nontender Auscultation: normoactive bowel sounds General: Yes no CVA tenderness Back/Spine/Pelvis Back: no CVA tenderness Skin General skin exam: elasticity normal and turgor normal Neuro General: oriented to person, oriented to place, oriented to time, patient oriented x3, moves all extremities, no focal motor deficits and CN's II-XI intact bilaterally Cranial nerves: Yes Equal, round and reactive pupils present Cognition (Neuro): normal cognition Extrem General: Yes full ROM, Yes no pedal edema and Yes no calf tenderness Psych Mental Status: mental status grossly normal Affect: normal affect Thought process: Normal thought process present Medical Decision Making Medical Decision Making [facility] Narrative: Patient is a 29-year-old presenting to the emergency department requesting prescription for Suboxone. On exam patient is awake, A+Ox3, slighty tachycardic, BP elevated, VS otherwise WNL, afebrile, normal neurological exam without focal deficits, physical exam findings as above. Given reported symptoms and physical exam findings, initial differential includes but is not limited to suboxone dependence, opioid use disorder. No concerns on review of [employer] SUPERVISOR. Will send prescription to cover patient until they are able to see new prescriber on 03/29. Return precautions discussed. Also discussed with patient the option of walk-in to [facility] which patient was not aware of previously. Patient verbalized understanding of and agreement with plan. Differential Diagnosis Differential Diagnoses: The differential diagnosis associated with the presentation includes As per MDM Admission/Observation Consideration of admission/observation: Escalation of care including admission/observation considered Patient would have been admitted to the hospital had their clinical presentation warranted hospital admission. External Record Review External record reviewed: Inpatient record, Office record and Outpatient record Prescription Management I considered prescription management with: Other Discharge Plan Discharge Clinical Impression: Medication refill Patient Disposition: Home, Self-Care Additional Instructions: Your prescription for suboxone was sent to the pharmacy. Opiate use disorder You were seen in our Emergency Department today for treatment of opiate use disorder. You may have been dosed with medication for opiate use disorder (MOUD) in the form of suboxone or methadone. You may experience feeling some withdrawal symptoms and this is normal. The? dose in the Emergency Department is a starting dose and meant to be titrated up once you follow up with a clinic. Please do not feel discouraged, it is a process. The nurse has reviewed with you where to follow up and what information to bring with you, to continue treatment. You also may have been given naloxone (narcan) to take home with you. This m edication is used to potentially treat opiate overdose. If you decide you want to stop or cut down on how much you?re using, you can call or walk into our outpatient Addiction Treatment office: [facility] (M-F 9am-5p) [address] [place] [address], [address] You may have been provided with safer injection?items, please take time to take care of YOU and your health. Use new supplies whenever possible to lessen the chances of infections and other illnesses.? ?If you need more supplies, please go [facility],? [address] [place] [address] OR you can call or text to coordinate delivery of safer supplies. You were also provided a list of several treatment providers in the area.? If you experience any worsening symptoms you cannot control please return to the ED or call 911. Please follow up at your next appointment. Things to look out for are fevers, chest pain, shortness of breath, severe pain, dizziness, fainting or any other concerns. Prescriptions: New buprenorphine-naloxone [Suboxone] 8-2 mg film 1 film buccal TID 7 Days Qty: 30 0RF No Action cyclobenzaprine 5 mg tablet 5 mg PO BEDTIME PRN (Reason: muscle spasm) Qty: 14 0RF cholecalciferol (vitamin D3) 25 mcg (1,000 unit) tablet 25 mcg PO DAILY Qty: 90 0RF (DME) FreeStyle Aureliano 3 [place] Misc See Rx Instructions .Route Qty: 1 0RF Rx Instructions: As directed insulin lispro [Humalog KwikPen Insulin] 100 unit/mL insulin pen 0 sliding scale dose SUBCUT QIDACHS Qty: 15 0RF Rx Instructions: Blood Sugar: <150 - 0 units 151-200 - 2 units 201-250 - 4 units 251-300 - 6 units 301-350 - 8 units >350 - 10 units sofosbuvir-velpatasvir [Epclusa] 400-100 mg tablet 1 tab PO DAILY 84 Days Qty: 84 0RF (DME) FreeStyle Lite Strips Strip Qty: 100 0RF Rx Instructions: Test four times a day or as directed. (DME) lancets [FreeStyle Lancets] 28 gauge misc Qty: 100 0RF Rx Instructions: Test four times a day or as directed. insulin lispro [Humalog KwikPen Insulin] 100 unit/mL insulin pen 25 unit SUBCUT QIDACHS Qty: 15 3RF (DME) pen needle, diabetic 32 gauge x 5/32 needle See Rx Instructions .Route Qty: 100 2RF Rx Instructions: As directed QID (DME) FreeStyle Aureliano 3 Plus Sensor Device See Rx Instructions .Route Qty: 2 3RF Rx Instructions: As directed insulin glargine [Lantus Solostar U-100 Insulin] 100 unit/mL (3 mL) insulin pen 60 unit SUBCUT BID Qty: 15 5RF alcohol swabs Pads, Medicated 1 pad TOPICAL QIDACHS Qty: 100 5RF Rx Instructions: Use four times a day or as directed. polyethylene glycol 3350 17 gram Powder In Packet 17 g PO DAILY PRN (Reason: Constipation) magnesium hydroxide [Milk of Magnesia] 400 mg/5 mL Suspension 30 ml PO DAILY PRN (Reason: Constipation) buspirone 10 mg tablet 20 mg PO TID aripiprazole 30 mg tablet 30 mg PO DAILY guaifenesin 200 mg/5 mL Liquid 200 - 400 mg PO Q4H PRN (Reason: COUGH/CONGESTION) topiramate 50 mg Tablet 50 mg PO BEDTIME (DME) blood-glucose meter [FreeStyle Lite Meter] Kit Qty: 1 0RF Rx Instructions: As Directed diphenhydramine HCl [Benadryl] 25 mg capsule 25 mg PO Q4H PRN (Reason: Allergy Symptoms) docusate sodium [Colace] 100 mg capsule 100 mg PO BID ibuprofen 600 mg tablet 600 mg PO Q6H PRN (Reason: PAIN/FEVER) loratadine 10 mg tablet 10 mg PO DAILY PRN (Reason: Allergy Symptoms) melatonin 3 mg capsule 3 mg PO BEDTIME PRN (Reason: Sleep) multivitamin Tablet 1 tab PO DAILY naloxone [Narcan] 4 mg/actuation spray,non-aerosol 4 mg intranasal Q2M PRN (Reason: OUD) Rx Instructions: spray 1 dose into ONE nostril; alternate nostrils w each dose until help arrives sennosides 17.2 mg tablet 17.2 mg PO BID PRN (Reason: Constipation) buprenorphine-naloxone [Suboxone] 8-2 mg film 1 film sublingual TID Rx Instructions: place 1 film on inside of (each) cheek trazodone 50 mg tablet 50 mg PO BEDTIME PRN (Reason: Sleep) olanzapine [Zyprexa] 20 mg tablet 20 mg PO BEDTIME lidocaine-prilocaine 2.5-2.5 % cream 1 appl topical TID PRN (Reason: PRIOR TO ELECTOLYSIS) semaglutide 0.25 mg or 0.5 mg(2 mg/1.5 mL) pen injector 0.25 mg subcut QWEEK Qty: 1.5 0RF Rx Instructions: for 4 weeks Print Language: Gambian
[2025-03-27 10:12] VITALS: BP 181/96; PULSE 110; RESP 19; TEMP 36.6; O2SAT 98
== END 2025-03-27 10:13 | disposition home or self-care (01) ==
PROVIDERS: Emergency Provider Emergency Medicine Emergency Medical Services; PCP Internal Medicine
DX: Z76.0 Encounter for issue of repeat prescription (principal); F11.90 Opioid use, unspecified, uncomplicated
CPT/HCPCS: 99282